=== PATIENT | male | born 1955 | race Caucasian/White ===

== ENCOUNTER 2024-05-17 09:13 | Outpatient (AMB) | payer OTHER, SELFPAY ==
--- NOTE | 2024-05-17 09:16 | MHC.OFFVIS ---
Vital Signs 05/17/24 09:20 Height 6 ft 2 in Weight 219 lb BMI 28.1 BP 144/70 H Blood Pressure Location Rt brachial Position Sitting Pulse 82 Pulse Source Pulse Oximeter Pulse Oximetry (%) 97 Oxygen Delivery Method Room Air Intake Visit Reasons: ENP: Tremors Intake Note: Patient presents for tremors. Allergies No Known Allergies Allergy (Verified 05/17/24 09:21) Medication List - Last Reconciled 05/17/24 by Katerina Johnston MD aspirin (Adult Low Dose Aspirin) 81 mg PO DAILY atorvastatin 80 mg PO BEDTIME betamethasone valerate 0.1% 1 appl topical BID PRN carbidopa-levodopa 25-100 mg tabs PO cetirizine 10 mg PO DAILY cetirizine (All Day Allergy (cetirizine)) 10 mg PO DAILY diclofenac sodium 1% (Aleve (diclofenac)) 4 grams topical QID glipizide 15 mg (3 x 5 mg) PO DAILY hydroxyzine HCl 10 mg PO TID PRN lisinopril 20 mg PO DAILY metformin 1,000 mg PO BID metoprolol succinate ER 25 mg PO DAILY omeprazole 20 mg PO DAILY tamsulosin 0.4 mg PO DAILY trazodone 50 mg PO DAILY HPI Comments Details: 68y/o male comes for evaluation of tremors. He started noticing right hand tremors about 1 year ago.It was intremittent initially but it is more persistent and now he has pain in his right elbow, right neck shoulder No tremors in his LE or the left UE. The tremors are mostly at rest. No change in speech.His handwriting is worse. No drooling.He can still use utensils but slower. No issues with personal hygiene. Gait- normal Memory- normal SLeep-has trouble staying asleep, has daytime fatigue, snores. bowel movements - has on and off diarrhea.No urinary issues No h/o head injury No exposure to chemical insecticides or pesticides. he was started on carbidopa/levodopa 25/100 tid but he did not notice any imporvement. [facility] Medical History (Updated 05/17/24 @ 09:50 by Katerina Johnston MD) Hypersomnia Snoring Sleep disorder Parkinson's disease without dyskinesia, without mention of fluctuations GERD (gastroesophageal reflux disease) DJD (degenerative joint disease) Insomnia HTN (hypertension) Hyperlipidemia LDL goal <100 Nephrolithiasis Hematuria Medial epicondylitis, left elbow Diabetes type 2 Diabetic polyneuropathy associated with type 2 diabetes mellitus Surgical History H/O lithotripsy H/O elbow surgery H/O colonoscopy Hx of cholecystectomy Family History Mother Diabetes Sister Diabetes Sister Diabetes Social History Alcohol intake: never Patient Tobacco Use Status: Never used Tobacco Physical Exam Vital Signs: Last Vital Signs Pulse 82 05/17/24 09:20 BP 144/70 H 05/17/24 09:20 Pulse Ox 97 05/17/24 09:20 Oxygen Delivery Method Room Air 05/17/24 09:20 BMI result Body Mass Index 28.1 Const General: cooperative, healthy appearing, comfortable and no acute distress Nutritional Appearance: average body habitus Orientation/consciousness: patient oriented x3 Eyes Pupils: Equal, round and reactive pupils present Neuro Other: Right UE high amplitude rest tremors COuld not shrug his right shoulder Cog wheel rigidity 2 + Right UE Fine finger movements decreased R>L Hand movements decreased R>L Foot taps decreased R>L Decreased blink and facial movement on the right Gait. mild stoop, decreased arm swing on the right with rest tremors. General: patient oriented x3, moves all extremities and no focal motor deficits Cranial nerves: Yes Facial sensation intact/muscles of mastication intact, Yes Equal, round and reactive pupils present, Yes Bilaterally intact EOM present, Yes Nystagmus not present, Yes Normal facial strength present, Yes Midline tongue present and Yes Symmetric palate elevation present Cognition (Neuro): normal cognition Motor exam (neuro): 5/5 motor strength present throughout Deep tendon reflexes (DTR's): Right triceps reflex intensity grade: 2+, Left triceps reflex intensity grade: 2+, Rt Biceps (C5, C6): 2+, Left biceps reflex intensity grade: 2+, Right brachioradialis reflex intensity grade: 2+, Left brachioradialis reflex intensity grade: 2+, Right patellar reflex intensity grade: 2+ and Left patellar reflex intensity grade: 2+ Coordination: [id number] test normal and [id number] test normal Psych Appearance: grossly normal Mental Status: mental status grossly normal Affect: normal affect Assessment & Plan Assessment & Plan (1) Parkinson's disease without dyskinesia, without mention of fluctuations: Comment: Tremors predominant- right side Code(s): G20.A1 - Parkinson's disease without dyskinesia, without mention of fluctuations Category: Medical Qualifiers: Fluctuating manifestations: without fluctuating manifestations Qualified Code(s): G20.A1 - Parkinson's disease without dyskinesia, without mention of fluctuations (2) Sleep disorder: Code(s): G47.9 - Sleep disorder, unspecified Category: Medical (3) Snoring: Code(s): R06.83 - Snoring Category: Medical (4) Hypersomnia: Code(s): G47.10 - Hypersomnia, unspecified Category: Medical Plan MRI brain Home sleep test to r/o sleep apnea Continue exercise Carbidopa/levodopa 25/100 tid I will trial him on trihexyphenidyl 2mg bid Orders: Orders RT home sleep study Today G47.10 - Hypersomnia, unspecified, G47.9 - Sleep disorder, unspecified, R06.83 - Snoring MR head/brain wo con Today G20.A1 - Parkinson's disease without dyskinesia, without mention of fluctuations Medications: New metoprolol succinate ER 25 mg PO DAILY 90 tabs 0RF atorvastatin 80 mg PO BEDTIME 90 tabs 0RF lisinopril 20 mg PO DAILY 90 tabs 0RF metformin 1,000 mg PO BID 180 tabs 0RF trihexyphenidyl give with food (meal/snack) 2 mg PO BID 60 tabs 3RF cetirizine (All Day Allergy (cetirizine)) 10 mg PO DAILY 30 caps 0RF glipizide take 2 tablets PO daily at breakfast then take 1 tablet PO with dinner 15 mg (3 x 5 mg) PO DAILY 270 tabs 0RF omeprazole 20 mg PO DAILY 90 caps 0RF aspirin (Adult Low Dose Aspirin) 81 mg PO DAILY 90 tabs 0RF tamsulosin 0.4 mg PO DAILY 90 caps 0RF trazodone 1-3 tablets PO at bedtime PRN for sleep 50 mg PO DAILY 90 tabs 0RF betamethasone valerate 0.1% 1 appl topical BID PRN 30 grams 0RF skin irritation hydroxyzine HCl 10 mg PO TID PRN 30 tabs 0RF itching Coding Level of Care Code New Pt Level 4 (16804) Complex EM visit Add On G2211 Diagnoses Parkinson's disease without dyskinesia or fluctuating manifestations G20.A1 Fluctuating manifestations: without fluctuating manifestations Sleep disorder G47.9 Snoring R06.83 Hypersomnia G47.10
[2024-05-17 09:20] VITALS: BP 144/70; PULSE 82; O2SAT 97; BMI 28.1
== END 2024-05-17 09:57 | disposition home or self-care (01) ==
PROVIDERS: PCP Physician Assistant Medical; Visit Provider Psychiatry & Neurology Neurology
DX: G20.A1 Parkinson's disease without dyskinesia, without mention of fluctuations (principal); G47.9 Sleep disorder, unspecified; R06.83 Snoring; G47.10 Hypersomnia, unspecified
CPT/HCPCS: 99204; G2211

== ENCOUNTER → 2024-05-17 09:13 | Outpatient (BNVA) | payer OTHER, SELFPAY | PROVIDERS: PCP Physician Assistant Medical; Visit Provider Psychiatry & Neurology Neurology | DX: G20.A1 Parkinson's disease without dyskinesia, without mention of fluctuations (principal); G47.9 Sleep disorder, unspecified; G47.10 Hypersomnia, unspecified; R06.83 Snoring | CPT/HCPCS: 99202 ==

== ENCOUNTER → 2024-06-08 10:02 | Outpatient (BNV) | payer OTHER, SELFPAY | PROVIDERS: PCP Physician Assistant Medical; Visit Provider Radiology Diagnostic Radiology | DX: G20.C Parkinsonism, unspecified (principal) | CPT/HCPCS: 70551 ==

== ENCOUNTER → 2024-06-29 10:48 | Outpatient (REF) | payer OTHER, SELFPAY ==
--- OUTSIDE RECORDS SUMMARY | 2024-06-29 13:25 | XMS_ITS | Encounter Summary ---
Author Organization [facility] Address [address] [place] [address] Care Team Providers Care Nuclear Reactor Engineer Name Role Phone Chuy Milian Primary Care Provider [phone] Reason for Referral * Imaging (Routine) - Pending Review Specialty Diagnoses / Procedures Referred By Harriet lombardo Referred To Contact Radiology Diagnoses Pancreatic lesion Procedures MR Abdomen wo and w Contrast Lewis Mei DO [address] [address] Phone: tel: fax: Radiology Department [address] [address] Phone: tel: fax: Referral ID Status Reason Start Date Expiration Date V isits Requested Visits Authorized [id number] Pending Review 06/14/2024 06/14/2025 1 1 Reason for Visit * Reason Comments Imaging Follow-up Encounter Details Date Type Department Care Team (Late st Contact Info) Description 06/14/2024 8:45 AM EST Office Visit General Surgery - [facility] [address] [phone] Lewis Mei DO [address] [address] Pancreatic lesion (Primary Dx); Right inguinal hernia Social History Tobacco Use Types Packs/Day Years Used Date Smoking Tobacco: Never Assessed Sex and Gender Information Value Date Recorded Sex Assigned at Not on file Legal Sex Male 2:33 PM EST Gender Identity Not on file Sexual Orientation Not on file documented as of this encounter Last Filed Vital Signs Vital Sign Reading Time Taken Comments Blood Pressure 144/77 06/14/2024 8:40 AM EST Pulse 71 06/14/2024 8:40 AM EST Temperature - - Respiratory Rate - - Oxygen Saturation - - Inhaled Oxygen Concentration - - Weight 98.9 kg (218 lb) 06/14/2024 8:40 AM EST Height 188 cm (6' 2 ) 06/14/2024 8:40 AM EST Body Mass Index 27.99 06/14/2024 8:40 AM EST documented in this encounter Progress Notes * Lewis Mei DO - 06/14/2024 8:45 AM EST Reason for visit: Follow-up - CT follow-up right inguinal hernia HPI: This is a pleasant 68 y.o. patient who was previously evaluated in my office for question of right inguinal hernia. He returns today to go over CT results. These showed. A Right fat-containing inguinal hernia with a hernia sac measuring 3.9 x 3.1 cm and defect measuring 1.3 cm. 2. No left-sided inguinal hernia is present. Anterior to the left external iliac vein is a nonspecific cystic lesion measuring 2.8 cm. This could be related to postoperative changes versus mesentericcyst. If further evaluation is needed, consider left sided ultrasound pelvis/groin. 3. 3 mm nonobstructing right renal calculus 4. 1.7 cm cystic lesion of the pancreatic head which statistically likely represent IPMN. Consider MRI abdomen with IV contrast/MRCP if further evaluation is necessary. ? He still wishes to move forward with surgery There have been no interval changes in past medical/surgical history, medications, social history, or family medical history. Please refer to EMR or my prior note for additional details. ROS GENERAL: No significant weight loss or fever RESPIRATORY: No cough or shortness of breath CARDIOVASCULAR: No chest pain GI: No abdominal discomfort, see HPI SKIN: No rash, jaundice ACTIVE MEDICATIONS: Medication list was reviewed/updated with the patient. No outpatient medications have been marked as taking for the 06/14/24 encounter (Office Visit) with Lewis Mei DO. ALLERGIES: @ALL@ PHYSICAL EXAM: Visit Vitals BP (!) 144/77 Pulse 71 Ht 1.88 m (74 ) Wt 98.9 kg (218 lb) BMI 27.99 kg/m?? BSA 2.25 m?? APPEARANCE: Alert and in no acute distress EYES: conjunctiva and sclera normal. HEART: RRR LUNG: non-labored respirations, patient is comfortable on room air without adventitious sounds ABDOMEN: benign , prior right subcostal incision from open gallbladder. Right inguinal hernia present EXTREMITIES: Extremities warm and well perfused without edema NEURO: Awake, alert and oriented, moves all extremities SKIN: Skin color, texture normal. LABS: No results found for: WBC , HGB , HCT , MCV No results found for: NA , K , CO2 , CL , BUN , GLU , ALB , ALKPHOS , TP IMAGING: Narrative & Impression CT ABDOMEN AND PELVIS WITHOUT INTRAVENOUS CONTRAST HISTORY: question right inguinal hernia. TECHNIQUE: Multiple contiguous axial images of the abdomen and pelvis were obtained without intravenous contrast. Images were reformatted to coronal and sagittal planes. Radiation dose is 16.28mGy COMPARISON: None FINDINGS: Lungs: The lung bases are clear. Mediastinum: The cardiac apex is normal in size, no pericardial effusion. Upper GI: Fatty infiltration of the liver. The spleen is grossly within normal limits. Patient is status postcholecystectomy. The pancreas is fatty replaced. There is a cystic lesion at the pancreatic head measuring 1.7 x 1.1 cm. Small hiatal hernia. : The adrenal glands are normal bilaterally. The kidneys are without hydronephrosis. 3 mm right upperpole nonobstructing calculus. Left upper pole 1.4 cm cyst. Left lower pole parapelvic cyst measuring 2.6 cm. The ureters take a nonobstructed course to a partially decompressed urinary bladder. Nonspecific cystic lesion within the left lower pelvis measuring 2.2 x 2.8 cm situated anterior to the left external iliac vein. Lower GI: The bowel is without obstruction or inflammation and there is no free fluid or free air within the peritoneal cavity. The terminal ileum and appendix are unremarkable. Multiple subcentimeter lymph nodes within the abdomen and pelvis. Vascular: Moderate atherosclerotic calcification of the abdominal aorta. MSK: There is a fat-containing right inguinal hernia with a hernia sac measuring 3.9 x 3.1 cm and a defect measuring 1.3 cm. No left-sided inguinal hernia is present. Mild degenerative changes of the osseous structures. IMPRESSION: 1. Right fat-containing inguinal hernia with a hernia sac measuring 3.9 x 3.1 cm and defect measuring 1.3 cm. 2. No left-sided inguinal hernia is present. Anterior to the left external iliac vein is a nonspecific cystic lesion measuring 2.8 cm. This could be related to postoperative changes versus mesentericcyst. If further evaluation is needed, consider left sided ultrasound pelvis/groin. 3. 3 mm nonobstructing right renal calculus 4. 1.7 cm cystic lesion of the pancreatic head which statistically likely represent IPMN. Consider MRI abdomen with IV contrast/MRCP if further evaluation is necessary. -------- FINAL REPORT -------- Dictated By: Chao Guajardo Dictated Date: 05/18/2024 09:52 ET Assigned Physician: Chao Guajardo Reviewed and Electronically Signed By: Chao Guajardo Signed Date: 05/18/2024 10:23 ET Workstation ID: [id number] Transcribed By: Self Edit Transcribed Date: 05/18/2024 09:52 ET ................................................................................ ............................................................. ASSESSMENT 1. Pancreatic lesion 2. Right inguinal hernia PLAN: 1. Patient has pancreatic lesion likely IPMN, will order MRI prior to operative intervention Right inguinal hernia- We will plan to move forward with Robotic assisted right inguinal hernia repair with Mesh. I explained the procedure in detail including the risks of the procedure which include bleeding, infection, damage to surrounding structures and need for further procedures. He understood the risks and wished to move forward with surgery. Decision made to move forward with surgery It was a pleasure seeing @PATRICE@ Cameron Kaur at the Surgery [facility] today. The patient has been instructed to call with any additional questions or concerns. @ESIG@ cc: documented in this encounter Plan of Treatment Upcoming Encounters Date Type Department Care Team (Late st Contact Info) Description 07/04/2024 8:30 AM EST Office Visit Adult Medicine [facility] [address] [place] [address] Kamala Puentes PA [address] [place] [address] 08/04/2024 10:00 AM EDT Pre-Admission Testing [facility] Pre-Admission Testing [address] [place] [phone] 08/12/2024 9:30 AM EDT Hospital Encounter [facility] Main OR [address] [place] [phone] Lewis Mei DO [address] [address] 08/12/2024 9:30 AM EDT - 08/12/2024 11:30 AM EDT Surgery [facility] Main OR [address] [place] [phone] Lewis Mei DO [address] [address] DAVINCI REPAIR RIGHT INGUINAL HERNIA W/MESH [02791 (CPT??)] 08/24/2024 10:00 AM EDT Office Visit General Surgery - [place] [address] [phone] Lewis Mei DO [address] [address] Pending Results Name Type Priority Associated Diagnoses Date /Time MR Abdomen wo and w Contrast Imaging Routine Pancreatic lesion 06/29/2024 10:16 AM EST Scheduled Orders Name Type Priority Associated Diagnoses Orde r Schedule ECG 12 lead ECG Routine Right inguinal hernia 1 Occurrences starting 06/14/2024 until 06/14/2025 MR Abdomen wo and w Contrast Imaging Routine Pancreatic lesion Expected: 06/14/2024, Expires: 06/14/2025 Scheduled Procedures Name Priority Associated Diagnoses Date/Ti nh REPAIR HERNIA INGUINAL ROBOT Right inguinal hernia 08/12/2024 9:30 AM EDT documented as of this encounter Visit Diagnoses Diagnosis Pancreatic lesion- Primary Right inguinal hernia Inguinal hernia without mention of obstruction or gangrene, unilateral or unspecified, (not specified as recurrent) Right inguinal hernia- Primary Inguinal hernia without mention of obstruction or gangrene, unilateral or unspecified, (not specified as recurrent) Right inguinal hernia Inguinal hernia without mention of obstruction or gangrene, unilateral or unspecified, (not specified as recurrent) documented in this encounter Orders Case Request Count Last Ordered Date First Orde red Date CASE REQUEST OPERATING ROOM 1 06/14/2024 documented in this encounter Care Teams Nuclear Reactor Engineer Relationship Specialty Start Date End Date Chuy Milian PA [address] [place] [address] PCP - General Internal Medicine 05/09/24 documented as of this encounter
--- OUTSIDE RECORDS SUMMARY | 2024-06-29 13:25 | XMS_ITS | Clinical Summary ---
Author Organization [facility] Address [address] [place] [address] Phone Care Team Providers Care B2B Sales Professional Name Role Phone Chuy Milian Primary Care Provider [phone] [phone] Allergies No known active allergies Medications aspirin 81 mg EC tablet Take 1 tablet (81 mg total) by mouth 1 (one) time each day. 3 Active atorvastatin (LIPITOR) 80 mg tablet Take 1 tablet (80 mg total) by mouth. 3 Active cetirizine (ZyrTEC) 10 mg tablet Take 1 tablet (10 mg total) by mouth. 4 Active diclofenac (VOLTAREN) 1 % topical gel Apply 4 g topically. 4 Active glipiZIDE (GLUCOTROL) 5 mg tablet TAKE 2 TABLETS BY MOUTH DAILY WITH BREAKFAST THEN TAKE 1 TABLET BY MOUTH WITH DINNER 4 Active OneTouch Ultra Test test strip Apply 1 each topically. 4 Active hydrOXYzine HCL (ATARAX) 10 mg tablet Take 1 tablet (10 mg total) by mouth. 3 Active lisinopriL (PRINIVIL,ZESTR IL) 20 mg tablet Take 1 tablet (20 mg total) by mouth 1 (one) time each day. 3 Active metFORMIN (GLUCOPHAGE) 1,000 mg tablet Take 1 tablet (1,000 mg total) by mouth. 3 Active metoprolol succinate (TOPROL-XL) 25 mg 24 hr tablet Take 1 tablet (25 mg total) by mouth 1 (one) time each day. 3 Active omeprazole (PriLOSEC) [address] capsule Take 1 capsule (20 mg total) by mouth 1 (one) time each day. 3 Active tamsulosin (FLOMAX) 0.4 mg 24 hr capsule Take 1 capsule (0.4 mg total) by mouth. 3 Active traZODone (DESYREL) 50 mg tablet TAKE 1 TO 3 TABLETS BY MOUTH AT BEDTIME NEEDED FOR SLEEP 3 Active lancets 33 gauge misc 1 Lancet by Not Applicable route. 4 Active OneTouch Ultra2 Meter misc USE TO TEST BLOOD SUGAR TWICE DAILY 1 each 5 Active primidone (MYSOLINE) 50 mg tablet TAKE 1/2 TABLET BY MOUTH AT BEDTIME 45 tablet 1 5 Active Active Problems Problem Noted Date Diagnosed Date Right inguinal hernia 06/14/2024 Diabetic polyneuropathy asso ciated with type 2 diabetes mellitus 09/19/2020 DM type 2, controlled, with complication 015 Medial epicondylitis of left elbow 11/19/2012 Nephrolithiasis 08/16/2012 Hematuria 08/16/2012 HTN (hypertension) 05/14/2012 Hyperlipidemia with target LDL less than 100 03/2013 Overview (06/29/2023): IMO update GERD (gastroesophageal reflux disease) 3 Insomnia 05/14/2012 Overview (06/29/2023): Takes rocioiftikhar DJD (degenerative joint disease) 05/14/2012 Resolved Problems Problem Noted Date Diagnosed Date Resolved Date Parkinsonism 11/02/2023 02/29/2024 Encounters Date Type Department Care Team Description 06/29/2024 8:36 AM EST Hospital Encounter Radiology Department - [address] [address] Pancreatic lesion 06/24/2024 Telephone General Surgery - [address] [place] [address] Lewis Mei, prior authorization ( Dr. Mei) 06/14/2024 8:45 AM EST Office Visit General Surgery - [place] 175 [facility] [address] [place] [phone] Lewis Mei DO Pancreatic lesion (Primary Dx); Right inguinal hernia 05/18/2024 8:49 AM EST - 05/18/2024 11:59 PM EST Hospital Encounter CT Scan - [address] [address] Right inguinal hernia Discharge Disposition: Home or Self Care 05/09/2024 3:00 PM EST Consult General Surgery - [place] [address] [phone] Lewis Mei, Right inguinal hernia from Last 3 Months Immunizations Name Administration Dates Next Due Influenza trivalent, 0.5mL ( Fluzone High-dose) 65yo and older 02/03/2022,01/22/2021,02/06/2020 Influenza trivalent, with pr eservative (Fluzone; Afluria) 6mo and older 02/09/2019,01/06/2017,03/03/2012 Pneumococcal conjugate 13 va lent (Prevnar 13, PCV13) 2mo and older 09/25/2021 Pneumococcal polysaccharide 23 valent (Pneumovax 23) 2yo and older 09/19/2020,03/03/2012 Td Tetanus diptheria (Tdvax) 7yo and older 11/25,10/15/2012 Tdap Tetanus diptheria acell ular pertussis (Boostrix; Adacel) 7yo and older 08/16/2012 Zoster Live 04/16/2016 Zoster recombinant (Shingrix ) 19yo and older 03/26/2021,01/25/2021 Medical History Medical History Date Comments Parkinsonism (CMS/HCC) 11/02/2023 Social History Tobacco Use Types Packs/Day Years Used Date Smoking Tobacco: Never Assessed Sex and Gender Information Value Date Recorded Sex Assigned at Not on file Legal Sex Male 2:33 PM EST Gender Identity Not on file Sexual Orientation Not on file Obstetrics History Last Filed Vital Signs Vital Sign Reading Time Taken Comments Blood Pressure 144/77 06/14/2024 8:40 AM EST Pulse 71 06/14/2024 8:40 AM EST Temperature - - Respiratory Rate - - Oxygen Saturation - - Inhaled Oxygen Concentration - - Weight 99.8 kg (220 lb) 06/29/2024 9:13 AM EST Height 188 cm (6' 2 ) 06/14/2024 8:40 AM EST Body Mass Index 28.25 06/14/2024 8:40 AM EST Plan of Treatment Upcoming Encounters Date Type Department Care Team (Late st Contact Info) Description 07/04/2024 8:30 AM EST Office Visit Adult Medicine [facility] [address] [place], [place] [phone] Kamala Puentes PA [address], [place] 08/04/2024 10:00 AM EDT Pre-Admission Testing [facility] Pre-Admission Testing [address] [place] [address] 08/12/2024 9:30 AM EDT Hospital Encounter [facility] Main OR [address] [place] [address] Lewis Mei, DO [address] [address] 08/12/2024 9:30 AM EDT - 08/12/2024 11:30 AM EDT Surgery [facility] Main OR [address] [place] [address] Lewis Mei, DO [address] [address] DAVINCI REPAIR RIGHT INGUINAL HERNIA W/MESH [22178 (CPT??)] 08/24/2024 10:00 AM EDT Office Visit General Surgery [facility] [address] [phone] Lewis Mei, DO [address] [address] Scheduled Procedures Name Priority Associated Diagnoses Date/Ti me REPAIR HERNIA INGUINAL ROBOT Right inguinal hernia 08/12/2024 9:30 AM EDT Health Maintenance Due Date Last Done Comments RSV Immunization Patients 60+ Years Old (1 - Risk 60-74 years 1-dose series) 2014 Medicare Annual Wellness Visit 04/12/2022 Social Influencers of Health Screening 04/12/2022 Falls Risk Assessment 02/03/2023 02/03/2022 Diabetes: Annual Retina Eye Exam 11/18/2023 11/17/2022 Depression Screening 11/26/2023 11/25/2022 Diabetes: Annual Foot Exam 11/26/2023 11/25/2022 Diabetes: Annual Urine Albumin-Creatinine Ratio (uACR) 11/27/2023 11/26/2022 COVID-19 Vaccine ( season) 2024 04/16/2021, 09/06/2020, 08/09/2020 Diabetes: Blood Sugar Control Test (HGBA1C) 08/19/2024 02/19/2024, 11/02/2023, 11/26/2022 Diabetes: Annual GFR (Glomerular Filtration Rate) 02/18/2025 02/19/2024, 11/02/2023 Hypertension/CHF/CAD Annual BMP Blood Test 02/18/2025 02/19/2024, 11/02/2023 Cholesterol Screening (Lipid Panel) 02/18/2029 02/19/2024, 11/02/2023, 11/02/2023, Additional history exists Colorectal Cancer Screening: Colonoscopy 12/24/2030 12/24/2020 DTaP,Tdap,and Td Vaccines (4 - Td or Tdap) 11/25/2032 11/25/2022, 10/15/2012, 08/16/2012 Hepatitis C Screening Completed 07/16/2015 Abdominal Aortic Aneurysm (AAA) Screen Completed 2020 Zoster Vaccines Completed 03/26/2021, 01/03, 04/16/2016 Pneumococcal Vaccine: 50+ Years Completed 09/25/2021, 09/19/2020, 03/03/2012 Influenza Vaccine Completed 02/19/2024, , 01/22/2021, Additional history exists HIB Vaccines Aged Out No longer eligi ble based on patient's age to complete this topic HPV Vaccines Aged Out No longer eligi ble based on patient's age to complete this topic Hepatitis A Vaccines Aged Out No long er eligible based on patient's age to complete this topic Hepatitis B Vaccines Aged Out No long er eligible based on patient's age to complete this topic IPV Vaccines Aged Out No longer eligi ble based on patient's age to complete this topic MMR Vaccines Aged Out No longer eligi ble based on patient's age to complete this topic Meningococcal ACWY Vaccine Aged Out N o longer eligible based on patient's age to complete this topic Meningococcal B Vacine Aged Out No lo nger eligible based on patient's age to complete this topic RSV Immunization Patients Under 20 months Aged Out No longer eligible based on patient's age to complete this topic Varicella Vaccines Aged Out No longer eligible based on patient's age to complete this topic Procedures Procedure Name Priority Date/Time Associated Diagnosis Comments CT ABDOMEN PELVIS WO CONTRAST Routine 05/18/2024 9:03 AM EST Right inguinal hernia URINE ALBUMIN CREATININE RATIO Routine 11/26/2022 HEMOGLOBIN A1C Routine 11/26/2022 LIPID PANEL Routine 11/26/2022 COLONOSCOPY Routine 12/24/2020 ABDOMINAL AORTIC ANEURYSM SCRREN Routine 2020 HEPATITIS C SCREENING Routine 07/16/2015 from Last 3 Months or Most Recently Relevant to Health Maintenance Results * CT Abdomen Pelvis wo Contrast (05/18/2024 9:03 AM EST) Anatomical Region Laterality Modality Body Computed Tomogra phy 05/18/2024 9:52 AM EST Impressions 05/18/2024 10:23 AM EST 1. ??Right fat-containing inguinal hernia with a hernia sac measuring 3.9 x 3.1 cm and defect measuring 1.3 cm. 2. No left-sided inguinal hernia is present. ??Anterior to the left external iliac vein is a nonspecific cystic lesion measuring 2.8 cm. ??This could be related to postoperative changes versus mesenteric cyst. ??If further evaluation is needed, consider left sided ultrasound pelvis/groin. 3. 3 mm nonobstructing right renal calculus 4. 1.7 cm cystic lesion of the pancreatic head which statistically likely represent IPMN. ??Consider MRI abdomen with IV contrast/MRCP if further evaluation is necessary. -------- FINAL REPORT -------- Dictated By: Chao Guajardo Dictated Date: 05/18/2024 09:52 ET Assigned Physician: Chao Guajardo Reviewed and Electronically Signed By: Chao Guajardo Signed Date: 05/18/2024 10:23 ET Workstation ID: [id number] Transcribed By: Self Edit Transcribed Date: 05/18/2024 09:52 ET Narrative 05/18/2024 10:[address] ABDOMEN AND PELVIS WITHOUT INTRAVENOUS CONTRAST HISTORY: question right inguinal hernia. TECHNIQUE: ??Multiple contiguous axial images of the abdomen and pelvis were obtained without intravenous contrast. Images were reformatted to coronal and sagittal planes. Radiation dose is 16.28mGy COMPARISON: None FINDINGS: Lungs: The lung bases are clear. ?? Mediastinum: The cardiac apex is normal in size, no pericardial effusion. Upper GI: Fatty infiltration of the liver. ??The spleen is grossly within normal limits. ??Patient is status post cholecystectomy. ??The pancreas is fatty replaced. ??There is a cystic lesion at the pancreatic head measuring 1.7 x 1.1 cm. ??Small hiatal hernia. : The adrenal glands are normal bilaterally. ??The kidneys are without hydronephrosis. ??3 mm right upper pole nonobstructing calculus. ??Left upper pole 1.4 cm cyst. ??Left lower pole parapelvic cyst measuring 2.6 cm. ??The ureters take a nonobstructed course to a partially decompressed urinary bladder. ??Nonspecific cystic lesion within the left lower pelvis measuring 2.2 x 2.8 cm situated anterior to the left external iliac vein. Lower GI: The bowel is without obstruction or inflammation and there is no free fluid or free air within the peritoneal cavity. ??The terminal ileum and appendix are unremarkable. ??Multiple subcentimeter lymph nodes within the abdomen and pelvis. Vascular: Moderate atherosclerotic calcification of the abdominal aorta. MSK: There is a fat-containing right inguinal hernia with a hernia sac measuring 3.9 x 3.1 cm and a defect measuring 1.3 cm. ??No left-sided inguinal hernia is present. ??Mild degenerative changes of the osseous structures. Procedure Note Chao Guajardo MD - 05/18/2024 CT ABDOMEN AND PELVIS WITHOUT INTRAVENOUS CONTRAST HISTORY: question right inguinal hernia. TECHNIQUE: Multiple contiguous axial images of the abdomen and pelviswere obtained without intravenous contrast. Images were reformatted tocoronal and sagittal planes. Radiation dose is 16.28mGy COMPARISON: None FINDINGS: Lungs: The lung bases are clear. Mediastinum: The cardiac apex is normal in size, no pericardial effusion. Upper GI: Fatty infiltration of the liver. The spleen is grossly within normallimits. Patient is status post cholecystectomy. The pancreas is fattyreplaced. There is a cystic lesion at the pancreatic head measuring 1.7 x1.1 cm. Small hiatal hernia. : The adrenal glands are normal bilaterally. The kidneys are withouthydronephrosis. 3 mm right upper pole nonobstructing calculus. Leftupper pole 1.4 cm cyst. Left lower pole parapelvic cyst measuring 2.6 cm.The ureters take a nonobstructed course to a partially decompressedurinary bladder. Nonspecific cystic lesion within the left lower pelvismeasuring 2.2 x 2.8 cm situated anterior to the left external iliacvein. Lower GI: The bowel is without obstruction or inflammation and there is no freefluid or free air within the peritoneal cavity. The terminal ileum andappendix are unremarkable. Multiple subcentimeter lymph nodes within theabdomen and pelvis. Vascular: Moderate atherosclerotic calcification of the abdominal aorta. MSK: There is a fat-containing right inguinal hernia with a hernia sacmeasuring 3.9 x 3.1 cm and a defect measuring 1.3 cm. No left-sidedinguinal hernia is present. Mild degenerative changes of the osseousstructures. IMPRESSION: 1. Right fat-containing inguinal hernia with a hernia sac measuring 3.9 x3.1 cm and defect measuring 1.3 cm. 2. No left-sided inguinal hernia is present. Anterior to the leftexternal iliac vein is a nonspecific cystic lesion measuring 2.8 cm. Thiscould be related to postoperative changes versus mesenteric cyst. Iffurther evaluation is needed, consider left sided ultrasound pelvis/groin. 3. 3 mm nonobstructing right renal calculus 4. 1.7 cm cystic lesion of the pancreatic head which statistically likelyrepresent IPMN. Consider MRI abdomen with IV contrast/MRCP if furtherevaluation is necessary. -------- FINAL REPORT -------- Dictated By: Chao Guajardo Dictated Date: 05/18/2024 09:52 ET Assigned Physician: Chao Guajardo Reviewed and Electronically Signed By: Chao Guajardo Signed Date: 05/18/2024 10:23 ET Workstation ID: [id number] Transcribed By: Self Edit Transcribed Date: 05/18/2024 09:52 ET Result [facility] Lewis Mei DO IMG CT PROCEDURES Final Result * Urine Albumin Creatinine Ratio (11/26/2022) Pathologist [facility] Urine Albumin Creatinine Ratio 8.3 Result [facility] Provider HEALTH MAINTENANCE Final Result * Hemoglobin A1c (11/26/2022) [facility] Hemoglobin A1C 6.5 % Blood Venous blood specimen / Unknown Result [facility] Provider LAB BLOOD ORDERABLES Tayla l Result * Lipid panel (11/26/2022) Pathologist [facility] LDL/HDL Ratio 5 Triglycerides 256 mg/dL Cholesterol 202 mg/dL HDL 45 mg/dL LDL Cholesterol 106 mg/dL Blood Venous blood specimen / Unknown Result [facility] Provider LAB BLOOD ORDERABLES Tayla l Result * Colonoscopy (12/24/2020) Pathologist [facility] Colonoscopy Negative Anatomical Region Laterality Modality Other Result [facility] Provider HEALTH MAINTENANCE Final Result * Abdominal Aortic Aneurysm Screen (2020) Abdominal Aortic Aneurysm (AAA) Screening Negative Anatomical Region Laterality Modality Other Historical Provider HEALTH MAINTENANCE Final Result * Hepatitis C Screening (07/16/2015) Hepatitis C Screening Negative Historical Provider HEALTH MAINTENANCE Final Result from Last 3 Months or Most Recently Relevant to Health Maintenance [place] [address] [place] [address] MEDICARE Member Subscriber Plan / Payer (Ef fective 2020-Present) Name:Cameron Kaur Relation to Subscriber:Self Name:Cameron Kaur Payer ID:[id number] Group ID:[id number] Type:Not on file Address: [address] [place] [address] [facility] [employer] Care Teams B2B Sales Professional Relationship Specialty Start Date End Date Chuy Milian PA [address] [place] [address] PCP - General Internal Medicine 05/09/24
--- OUTSIDE RECORDS SUMMARY | 2024-06-29 13:25 | XMS_ITS | Encounter Summary ---
Author Organization [facility] Address [address] [place] [address] Care Team Providers Care Regional Transportation Manager Name Role Phone Chuy Milian Primary Care Provider [phone] Reason for Visit * Reason Onset Date Comments prior authorization 06/24/2024 Dr Alyssa Mei Encounter Details Date Type Department Care Team (Late Contact Info) Description 06/24/2024 Telephone General Surgery - [place] 175 [facility] [address] [place] [phone] Lewis Mei, DO 175 [facility] [address] [place] [id number] prior authorization ( Dr. Mei) Social History Tobacco Use Types Packs/Day Years Used Date Smoking Tobacco: Never Assessed Sex and Gender Information Value Date Recorded Sex Assigned at Not on file Legal Sex Male 2:33 PM EST Gender Identity Not on file Sexual Orientation Not on file documented as of this encounter Progress Notes * Ludwig Villa - 06/24/2024 11:21 [place] [id number] per [facility] documented in this encounter Plan of Treatment Upcoming Encounters Date Type Department Care Team (Late st Contact Info) Description 07/04/2024 8:30 AM EST Office Visit Adult Medicine [address] [phone] Kamala Puentes PA [address] [place], [place] 08/04/2024 10:00 AM EDT Pre-Admission Testing Pre-Admission Testing [address] [place] [phone] 08/12/2024 9:30 AM EDT Hospital Encounter Main OR [address] [place] [phone] Lewis Mei, DO [address] [address] 08/12/2024 9:30 AM EDT - 08/12/2024 11:[address] [facility] OR [address] [place] [phone] Lewis Mei, DO [address] [address] DAVINCI REPAIR RIGHT INGUINAL HERNIA W/MESH [[id number] (CPT??)] 08/24/2024 10:00 AM EDT Office Visit General Surgery - [place] [address] [phone] Lewis Mei, DO [address] [address] Scheduled Procedures Name Priority Associated Diagnoses Date/Ti nv REPAIR HERNIA INGUINAL ROBOT Right inguinal hernia 08/12/2024 9:30 AM EDT documented as of this encounter Visit Diagnoses Not on filedocumented in this encounter Care Teams Regional Transportation Manager Relationship Specialty Start Date End Date Chuy Milian PA [address] [place] [address] PCP - General Internal Medicine 05/09/24 documented as of this encounter
--- OUTSIDE RECORDS SUMMARY | 2024-06-29 13:25 | XMS_ITS | Encounter Summary ---
Author Organization [facility] Address [address] [place] [address] Care Team Providers Care Fur Blowing Machine Operator Name Role Phone Chuy Milian Primary Care Provider [phone] Reason for Referral * Imaging (Routine) - Pending Review Specialty Diagnoses / Procedures Referred By Contac t Referred To Contact Radiology Diagnoses Pancreatic lesion Procedures MR Abdomen wo and w Contrast Lewis Mei DO [address] [address] Phone: tel: fax: Radiology Department [address] Phone: tel: fax: Referral ID Status Reason Start Date Expiration Date V isits Requested Visits Authorized [id number] Pending Review 06/14/2024 06/14/2025 1 1 Reason for Visit * Imaging (Routine) - Pending Review Specialty Diagnoses / Procedures Referred By Contac t Referred To Contact Radiology Diagnoses Pancreatic lesion Procedures MR Abdomen wo and w Contrast Lewis Mei DO [address] [address] Phone: tel: fax: Radiology Department [address] Phone: tel: fax: Referral ID Status Reason Start Date Expiration Date V isits Requested Visits Authorized [id number] Pending Review 06/14/2024 06/14/2025 1 1 Encounter Details Date Type Department Care Team (Latest Contact Info) Description 06/29/2024 8:36 AM EST Hospital Encounter Radiology Department [address] [phone] Pancreatic lesion Social History Tobacco Use Types Packs/Day Years Used Date Smoking Tobacco: Never Assessed Sex and Gender Information Value Date Recorded Sex Assigned at Not on file Legal Sex Male 2:33 PM EST Gender Identity Not on file Sexual Orientation Not on file documented as of this encounter Plan of Treatment Upcoming Encounters Date Type Department Care Team (Late st Contact Info) Description 07/04/2024 8:30 AM EST Office Visit Adult Medicine [address] [phone] Kamala Puentes PA [address] [place] [address] 08/04/2024 10:00 AM EDT Pre-Admission Testing [facility] Pre-Admission Testing [address] [place] [phone] 08/12/2024 9:30 AM EDT Hospital Encounter [facility] Main OR [address] [place] [address] Lewis Mei, DO [address] [address] 08/12/2024 9:30 AM EDT - 08/12/2024 11:30 AM EDT Surgery [facility] Main OR [address] [place] [phone] Lewis Mei, DO [address] [address] DAVINCI REPAIR RIGHT INGUINAL HERNIA W/MESH [[id number] (CPT??)] 08/24/2024 10:00 AM EDT Office Visit General Surgery [facility] [address] [phone] Lewis Mei, DO [address] [place] [address] Pending Results Name Type Priority Associated Diagnoses Date /Time MR Abdomen wo and w Contrast Imaging Routine Pancreatic lesion 06/29/2024 10:16 AM EST Scheduled Orders Name Type Priority Associated Diagnoses Orde r Schedule MR Abdomen wo and w Contrast Imaging Routine Pancreatic lesion Once for 1 Occurrences starting 06/29/2024 until 06/29/2024 Scheduled Procedures Name Priority Associated Diagnoses Date/Ti me REPAIR HERNIA INGUINAL ROBOT Right inguinal hernia 08/12/2024 9:30 AM EDT documented as of this encounter Visit Diagnoses Diagnosis Right inguinal hernia- Primary Inguinal hernia without mention of obstruction or gangrene, unilateral or unspecified, (not specified as recurrent) Pancreatic lesion Right inguinal hernia Inguinal hernia without mention of obstruction or gangrene, unilateral or unspecified, (not specified as recurrent) documented in this encounter Administered Medications Inactive Administered Medications - up to 3 most recent administrations Medication Order MAR Action Action Date Dose Rate Site gadoterate meglumine (CLARISCAN, DOTAREM) injection 20 mL 20 mL, intravenous, Once in imaging, Starting on Thu06/29/24 at 0947, For 1 dose Given 06/29/2024 9:51 AM EST 20 mL documented in this encounter Orders Medications Ordered That Bro ht Not Have Been Administered Count Last Ordered Date First Ordered Date gadoterate meglumine (NADIA CAN, DOTAREM) injection 20 mL 1 06/29/2024 documented in this encounter Care Teams Fur Blowing Machine Operator Relationship Specialty Start Date End Date Chuy Milian PA [address] [place] [address] PCP - General Internal Medicine 05/09/24 documented as of this encounter
== END ==
LOC: HO.SL 10:48
PROVIDERS: PCP Physician Assistant Medical; Visit Provider Psychiatry & Neurology Neurology
DX: R06.83 Snoring (principal); G47.9 Sleep disorder, unspecified; G47.10 Hypersomnia, unspecified
CPT/HCPCS: 95806

== ENCOUNTER → 2024-06-29 11:03 | Outpatient (BNV) | payer OTHER, SELFPAY | PROVIDERS: PCP Physician Assistant Medical; Visit Provider Psychiatry & Neurology Neurology | DX: G47.33 Obstructive sleep apnea (adult) (pediatric) (principal) | CPT/HCPCS: 95806 ==

== ENCOUNTER 2024-10-05 13:42 | Outpatient (AMB) | payer OTHER, SELFPAY ==
[2024-10-05 13:45] VITALS: BP 122/60; PULSE 70; BMI 26.6
--- NOTE | 2024-10-05 13:45 | A.OFFVIS_ITS ---
Vital Signs 10/05/24 13:45 Height 6 ft 2 in Weight 207 lb 8 oz BMI 26.6 BP 122/60 Blood Pressure Location Lt brachial Position Sitting Pulse 70 Pulse Source Pulse Oximeter Intake Visit Reasons: 4mon follow-up Intake Note: Patient needs a refill on Carbidopa/ Levodopa 25-100mg. 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 [employer] Language: Peripatologist Name: Margot [id number] Accompanied by: Self / Same As Patient Allergies No Known Allergies Allergy (Verified 10/05/24 13:49) Medication List - Last Reconciled 10/05/24 by Katerina Johnston MD amantadine HCl 100 mg PO BID aspirin (Adult Low Dose Aspirin) 81 mg PO DAILY atorvastatin 80 mg PO BEDTIME betamethasone valerate 0.1% 1 appl topical BID PRN carbidopa-levodopa 25-100 mg tabs PO cetirizine 10 mg PO DAILY cetirizine (All Day Allergy (cetirizine)) 10 mg PO DAILY diclofenac sodium 1% (Aleve (diclofenac)) 4 grams topical QID glipizide 15 mg (3 x 5 mg) PO DAILY hydroxyzine HCl 10 mg PO TID PRN lisinopril 20 mg PO DAILY metformin 1,000 mg PO BID metoprolol succinate ER 25 mg PO DAILY omeprazole 20 mg PO DAILY tamsulosin 0.4 mg PO DAILY trazodone 50 mg PO DAILY trihexyphenidyl 2 mg PO BID Do you need a note to return to daycare/school/sports/work: No HPI Comments Details: 69y/o male comes for follow up of parkinsons disease and Obstructive sleep apnea His HST was c/w mild sleep apnea with increased severity in supine sleep, He tried CPAP - multiple masks and could not tolerate. His tremor sare better with trihexyphenidyl . The tremors are mostly at rest. No change in speech.His handwriting is worse. No drooling.He can still use utensils but slower. No issues with personal hygiene. Gait- normal Memory- normal SLeep-has trouble staying asleep, has daytime fatigue, snores. bowel movements - has on and off diarrhea.No urinary issues No h/o head injury No exposure to chemical insecticides or pesticides. [facility] Medical History (Updated 10/05/24 @ 14:32 by Katerina Johntson MD) Obstructive sleep apnea hypopnea, moderate Hypersomnia Snoring Sleep disorder Parkinson's disease without dyskinesia, without mention of fluctuations GERD (gastroesophageal reflux disease) DJD (degenerative joint disease) Insomnia HTN (hypertension) Hyperlipidemia LDL goal <100 Nephrolithiasis Hematuria Medial epicondylitis, left elbow Diabetes type 2 Diabetic polyneuropathy associated with type 2 diabetes mellitus Surgical History H/O lithotripsy H/O elbow surgery H/O colonoscopy Hx of cholecystectomy Family History Mother Diabetes Sister Diabetes Sister Diabetes Social History Alcohol intake: never Patient Tobacco Use Status: Never used Tobacco Physical Exam Vital Signs: Last Vital Signs Pulse 70 10/05/24 13:45 BP 122/60 10/05/24 13:45 BMI result Body Mass Index 26.6 Const General: cooperative, healthy appearing, comfortable and no acute distress Nutritional Appearance: average body habitus Orientation/consciousness: patient oriented x3 Eyes Pupils: Equal, round and reactive pupils present Neuro Other: Right UE high amplitude rest tremors COuld not shrug his right shoulder Cog wheel rigidity 2 + Right UE Fine finger movements decreased R>L Hand movements decreased R>L Foot taps decreased R>L Decreased blink and facial movement on the right Gait. mild stoop, decreased arm swing on the right with rest tremors. General: patient oriented x3, moves all extremities and no focal motor deficits Cranial nerves: Yes Facial sensation intact/muscles of mastication intact, Yes Equal, round and reactive pupils present, Yes Bilaterally intact EOM present, Yes Nystagmus not present, Yes Normal facial strength present, Yes Midline tongue present and Yes Symmetric palate elevation present Cognition (Neuro): normal cognition Motor exam (neuro): 5/5 motor strength present throughout Coordination: [id number] test normal and [id number] test normal Assessment & Plan Assessment & Plan (1) Parkinson's disease without dyskinesia, without mention of fluctuations: Comment: Tremors predominant- right side Code(s): G20.A1 - Parkinson's disease without dyskinesia, without mention of fluctuations Category: Medical Qualifiers: Fluctuating manifestations: without fluctuating manifestations Qualified Code(s): G20.A1 - Parkinson's disease without dyskinesia, without mention of fluctuations (2) Obstructive sleep apnea hypopnea, moderate: Comment: Unable to tolerate CPAP, not a candidate for oral device . Code(s): G47.33 - Obstructive sleep apnea (adult) (pediatric) Category: Medical Plan Continue exercise Carbidopa/levodopa 25/100 tid trihexyphenidyl 2mg bid will consider INSPIRE for sleep apnea. Medications: Changed From carbidopa-levodopa 25-100 mg PO To carbidopa-levodopa 25-100 mg 1 tab PO TID 90 tabs 5RF Coding Level of Care Code Est Pt Level 4 (07605) Complex EM visit Add On G2211 Diagnoses Parkinson's disease without dyskinesia or fluctuating manifestations G20.A1 Fluctuating manifestations: without fluctuating manifestations Obstructive sleep apnea hypopnea, moderate G47.33
--- OUTSIDE RECORDS SUMMARY | 2024-10-05 13:55 | XMS_ITS | Clinical Summary ---
Author Organization 175 [facility] Address [address] [place] [address] Phone Care Team Providers Care Sales Project Coordinator Name Role Phone Chuy Milian Primary Care Provider [phone] Allergies No known active allergies Medications aspirin 81 mg EC tablet Take 1 tablet (81 mg total) by mouth 1 (one) time each day. 11/26/19 23 Active glipiZIDE (GLUCOTROL) 5 mg tablet TAKE 2 TABLETS BY MOUTH DAILY WITH BREAKFAST THEN TAKE 1 TABLET BY MOUTH WITH DINNER 05/20/19 24 Active OneTouch Ultra Test test strip Apply 1 each topically. 06/29/19 24 Active lisinopriL (PRINIVIL,ZEST RIL) 20 mg tablet Take 1 tablet (20 mg total) by mouth 1 (one) time each day. 11/26/19 Active metFORMIN (GLUCOPHAGE) 1,000 mg tablet Take 1 tablet (1,000 mg total) by mouth 2 (two) times a day with meals. 11/26/19 Active metoprolol succinate (TOPROL-XL) 25 mg 24 hr tablet Take 1 tablet (25 mg total) by mouth 1 (one) time each day. 01/29/20 23 Active omeprazole (PriLOSEC) [address] capsule Take 1 capsule (20 mg total) by mouth if needed. 03/20/20 23 Active tamsulosin (FLOMAX) 0.4 mg 24 hr capsule Take 1 capsule (0.4 mg total) by mouth at bedtime. 11/26/19 23 Active lancets 33 gauge misc 1 Lancet by Not Applicable route. 06/29/19 24 Active OneTouch Ultra2 Meter [facility] USE TO TEST BLOOD SUGAR TWICE DAILY 1 each 05/30/19 25 Active carbidopa-levo dopa (SINEMET) 25-100 mg per tablet Take 1 tablet by mouth 2 (two) times a day. 06/22/19 25 Active atorvastatin (LIPITOR) 80 mg tablet Take 1 tablet (80 mg total) by mouth 1 (one) time each day. 90 tablet 3 07/09/19 25 Active acetaminophen (TYLENOL) 500 mg tablet Take by mouth every 6 (six) hours if needed for mild pain. Active acetaminophen (TYLENOL) 500 mg tablet Take 2 tablets (1,000 mg total) by mouth every 6 (six) hours if needed for mild pain. 60 tablet 08/13/19 25 Active ibuprofen (ADVIL,MOTRIN) 600 mg tablet Take 1 tablet (600 mg total) by mouth 3 (three) times a day. 60 each 08/13/19 25 Active oxyCODONE (ROXICODONE) 5 mg immediate release tabletIndicati ons:Right inguinal hernia Take 1 tablet (5 mg total) by mouth every 6 (six) hours if needed for severe pain. Max Daily Amount: 20 mg 16 tablet 08/13/19 25 Active cetirizine (ZyrTEC) 10 mg tablet TAKE 1 TABLET BY MOUTH DAILY 30 tablet 09/28/19 25 Active cetirizine (ZyrTEC) 10 mg tablet TAKE 1 TABLET BY MOUTH DAILY 30 tablet 08/18/19 25 025 Discontinued Active Problems Problem Noted Date Diagnosed Date Diabetic polyneuropathy asso ciated with type 2 diabetes mellitus ([facility] V24, [facility] V28) 09/19/2020 DM type 2, controlled, with complication ([facility] V24, [facility] V28) 02/12/2015 Medial epicondylitis of left elbow 11/19/2012 Nephrolithiasis 08/16/2012 Hematuria 08/16/2012 HTN (hypertension) 05/14/2012 Hyperlipidemia with target LDL less than 100 03/2013 Overview (06/29/2023): IMO update GERD (gastroesophageal reflux disease) 3 Insomnia 05/14/2012 Overview (06/29/2023): Takes pierre BABB (degenerative joint disease) 05/14/2012 Resolved Problems Problem Noted Date Diagnosed Date Resolved Date Right inguinal hernia 06/14/20242024 Parkinsonism (CMS/HCC V24, CMS/HCC V28) 11/02/2023 02/29/2024 Encounters Date Type Department Care Team Description 08/24/2024 10:00 AM EDT Office Visit General Surgery [address] [phone] Lewis Mei, Right inguinal hernia (Primary Dx); S/P right inguinal hernia repair, follow-up exam 08/12/2024 9:51 AM EDT Anesthesia Event [facility] OR [address] [place] [phone] Chuy Saldana DO Mounsey, Sarah, CRNA 08/12/2024 9:30 AM EDT - 08/12/2024 11:30 AM EDT Surgery [facility] OR [address] [place] [phone] Lewis Mei DO DAVINCI REPAIR RIGHT INGUINAL HERNIA W/MESH [[id number] (CPT??)] 08/12/2024 8:02 AM EDT - 08/12/2024 2:04 PM EDT Hospital Encounter [facility] OR [address] [place] [phone] Lewis Mei, Right inguinal hernia (Primary Dx) Discharge Disposition: Home or Self Care 07/25/2024 Telephone [facility] Surgery [address] [phone] Lewis Mei DO Forms/questionnaire s 07/19/[address] [phone] Tonja Tomas [place] 07/06/2024 Telephone Adult [address] [phone] Aaron Mendes MD from Last 3 Months Immunizations Name Administration [...] recombinant (Shingrix ) 19yo and older 03/26/2021,01/25/2021 Surgical History Surgery Date Site/Laterality Comments CHOLECYSTECTOMY ELBOW SURGERY Left KNEE ARTHROSCOPY Left Medical History Medical History Date Comments Parkinsonism ([facility] V24, [facility] V28) 11/02/19 24 Hyperlipidemia Hypertension Diabetes mellitus ([facility] V24, [facility] V28) GERD (gastroesophageal reflux disease) DJD (degenerative joint disease) Nephrolithiasis Sleep apnea Depression Joint pain Social History Tobacco Use Types Packs/Day Years Used Date Smoking Tobacco: Former Cigarettes Passive Smoke Exposure: Never Smokeless Tobacco: Never Tobacco Cessation:Counseling Given: Not Answered Alcohol Use Standard Drinks/Week Comments Not Currently 0 (1 standard drink = 0.6 oz pur e alcohol) Housing Instability Answer Date Recorde d Are you worried that in the next 2 months you may not have stable housing? No 07/04/2024 Food Access & Nutrition Answer Date Rec orded Do you have access to a vari ety of food including fruits and vegetables? Yes 07/04/2024 Access to Healthcare Answer Date Record ed Within the last 3 months, eduardo w many times did you visit the emergency department for your medical care? 0 07/04/2024 Health Literacy Answer Date Recorded How often do you need to hav e someone help you when you read instructions, pamphlets, or other written material from your doctor or pharmacy? Never 07/04/2024 Caregiver: How often do you need to have someone help you when you read instructions, pamphlets, or other written material from your doctor or pharmacy? Not on file 07/04/2024 Financial Risk Answer Date Recorded How hard is it for you to pa y for the very basics like food, housing, medical care, and air conditioning / heating? Not very hard 07/04/2024 Transportation Answer Date Recorded Has the lack of transportati on kept you from meetings, work, or from getting things needed for daily living? No Has the lack of transportati on kept you from medical appointments or from getting medications? No 07/04/2024 Social Isolation Answer Date Recorded How often do you feel lonely or isolated from th ose around you? Never 07/04/2024 Food Risk Answer Date Recorded Within the past 12 months we worried whether our food would run out before we got money to buy more. Never true 07/04/2024 Within the past 12 months th e food we bought just didn't last and we didn't have money to get more. Never true 07/04/2024 Dependent Care Answer Date Recorded Do you need help finding or paying for care for your loved ones. For example, early childhood associate teacher or elderly care for an older adult? No 07/04/2024 Education Answer Date Recorded Do you think completing more education or training, like finishing a GED, going to college, or learning a trade, would be helpful for you? No 07/04/2024 Employment and Income Answer Date Recor ded During the last four weeks, have you been actively looking for work? No 07/04/2024 Living Situation Answer Date Recorded What is your living situation? 0 07/04/2024 Interpersonal Safety Answer Date Record ed Physical Abuse 08/12/2024 Verbal Abuse 08/12/2024 Sex and Gender Information Value Date Recorded Sex Assigned at Male 08/04/2024 9:54 AM EDT Legal Sex Male 2:33 PM EST Gender Identity Male 08/04/2024 9:54 AM EDT Sexual Orientation Straight 08/04/2024 9: 54 AM EDT Obstetrics History Last Filed Vital Signs Vital Sign Reading Time Taken Comments Blood Pressure 157/75 08/24/2024 9:57 AM EDT Pulse 76 08/24/2024 9:57 AM EDT Temperature 36 ??C (96.8 ??F) 08/12/2024 12:41 PM EDT Respiratory Rate 18 08/12/2024 12:41 PM EDT Oxygen Saturation 98% 08/12/2024 12:41 PM EDT Inhaled Oxygen Concentration - - Weight 95.3 kg (210 lb) 08/24/2024 9:57 AM EDT Height 188 cm (6' 2 ) 08/24/2024 9:57 AM EDT Body Mass Index 26.96 08/24/2024 9:57 AM EDT Plan of Treatment Upcoming Encounters Date Type Department Care Team (Late st Contact Info) Description 10/25/2024 9:15 AM EDT Office Visit General Surgery - [place] [facility] [address] [place] [phone] Lewis Mei, [address] [facility] [address] [place] [address] 11/03/2024 11:15 AM EDT Office Visit Adult Medicine [facility] [address] [place] [phone] Kamala Puentes PA [address] [place] [phone] Health Maintenance Due Date Last Done Comments RSV Immunization Adult Patients (1 - Risk 60-74 years 1-dose series) 2014 Medicare Annual Wellness Visit 04/12/2022 COVID-19 Vaccine ( season) 2024 04/16/2021, 09/06/2020, 08/09/2020 Diabetes: Blood Sugar Control Test (HGBA1C) 01/06/2025 07/06/2024, 02/19/2024, 11/02/2023, Additional history exists Diabetes: Annual Retina Eye Exam 01/21/2025 01/22/2024, 01/22/2024, 11/17/2022 Depression Screening 07/04/2025 07/04/2024, 11/26/19 23 Diabetes: Annual Foot Exam 07/04/2025 07/04/2024, Social Influencers of Health Screening 07/04/2025 07/04/2024 Diabetes: Annual Urine Albumin-Creatinine Ratio (uACR) 07/06/2025 07/06/2024, 11/26/2022 Diabetes: Annual GFR (Glomerular Filtration Rate) 07/06/2025 07/06/2024, 02/19/2024, 11/02/2023 Hypertension/CHF/CAD Annual BMP Blood Test 07/06/2025 07/06/2024, 02/19/2024, 11/02/2023 Falls Risk Assessment 08/12/2025 08/12/2024 , 07/04/2024, 02/03/2022 Cholesterol Screening (Lipid Panel) 07/06/2029 07/06/2024, 07/06/2024, 02/19/2024, Additional history exists Colorectal Cancer Screening: Colonoscopy [...] age to complete this topic Meningococcal B Vaccine Aged Out No l onger eligible based on patient's age to complete this topic RSV Immunization Patients Under 20 months Aged Out No longer eligible based on patient's age to complete this topic Varicella Vaccines Aged Out No longer eligible based on patient's age to complete this topic Medical Devices Implanted Type Area Tissue Technologist Device Identifier Shelf Expiration Date Model / Serial / Lot Mesh Surg 3d Right Xlg 6.7x4.8 - Sn/A - [id number] Implanted:Qty: 1 on 08/12/2024 by Lewis Mei DO at [facility] Surgical Mesh Sling Implants Right: Abdomen CR BARD - DAVOL DIV 12/29/2028 [id number] / N/A / [id number] Procedures Procedure Name Priority Date/Time Associated Diagnosis Comments TH AN ENDOTRACHEAL(NO CHARGE) Routine 08/12/2024 10:25 AM EDT ME LAP SURG REPR INITIAL INGUINAL HERNIA 08/12/2024 9:48 AM EDT Right inguinal hernia Special Needs Robotic Inguinal Hernia Repair With Mesh (Right)-- asking 90 Minutes POCT GLUCOSE BLOOD Routine 08/12/2024 8: 12 AM EDT ECG 12-LEAD Routine 08/04/2024 10:03 AM EDT Right inguinal hernia ECHO 08/04/2024 LDL CHOLESTEROL, DIRECT Routine 07/06/2024 9:54 AM EST DM type 2, controlled, with complication (CMS/HCC V24, CMS/HCC V28) HEMOGLOBIN A1C Routine 07/06/2024 9:54 AM EST DM type 2, controlled, with complication (CMS/HCC V24, CMS/HCC V28) COMPREHENSIVE METABOLIC PANEL Routine 07/06/2024 9:54 AM EST DM type 2, controlled, with complication (CMS/HCC V24, CMS/HCC V28) LIPID PANEL WITH REFLEX TO DIRECT LDL Routine 07/06/2024 9:54 AM EST DM type 2, controlled, with complication (CMS/HCC V24, CMS/HCC V28) MICROALBUMIN CREATININE URINE RATIO Routine 07/06/2024 9:54 AM EST DM type 2, controlled, with complication (CMS/HCC V24, CMS/HCC V28) EXTERNAL DIABETIC RETINA EYE EXAM 01/22/2024 HM COLONOSCOPY Routine 12/24/2020 ABDOMINAL AORTIC ANEURYSM SCRREN Routine 2020 HEPATITIS C SCREENING Routine 07/16/2015 from Last 3 Months or Most Recently Relevant to Health Maintenance Results * TH AN ENDOTRACHEAL(NO CHARGE) (08/12/2024 10:25 AM EDT) Diamond Kemp CRNA - 08/12/2024 10:25 AM EDT Diamond Huang CRNA ? 08/12/2024 10:26 AM General Information and Staff Patient location during procedure: OR Anesthesiologist: Chuy Saldana DO Resident/BRAZER ASSEMBLER: Diamond Huang CRNA Performed: resident/BRAZER ASSEMBLER/CAA Performed by: Diamond Huang CRNA Authorized by: Chuy Saldana DO ?? Intubation Urgency: elective Final Airway Details Successful airway: ETT Cuffed: yes Successful intubation technique: direct laryngoscopy Blade: Janett Blade size: #3 ETT size (mm): 7.5 Cormack-Lehane Classification: grade I - full view of glottis Placement verified by: chest auscultation and capnometry Measured from: lips ETT to lips (cm): 22 Number of attempts at approach: 1Final airway type: endotracheal airway Indications and Patient Condition Indications for airway management: anesthesia Spontaneous ventilation: present Sedation level: Yes Preoxygenated: yes Soft Tissue Damage: No Dentition Unchanged: Yes Patient position: neutral MILS maintained throughout Mask difficulty assessment: 1 - vent by mask us hCuy Saldana DO ANESTHESIA ORDERABLES Final Res ult * (ABNORMAL) POCT Glucose, blood (08/12/2024 8:12 AM EDT) Glucose POCT 170(H) 70 - 100 mg/dL 08/12/2024 8:12 AM EDT [facility] Blood Capillary blood specimen / Unknown 08/12/2024 8:12 AM EDT 08/12/2024 8:13 AM EDT Lewis Mei DO LAB POINT OF CARE TE ST DOCKED DEVICE UNSOLICITED RESULTS Final Result Performing Organization Address [facility] de Phone Number [facility]) [facility] [address] [place] [address], [place] [phone] * ECG 12 lead (08/04/2024 10:03 AM EDT) Ventricular Rate ECG 49 BPM GEMUSE Atrial Rate 49 BPM GEMUSE P-R Interval 202 ms GEMUSE QRS Duration 78 ms GEMUSE Q-T Interval 392 ms GEMUSE QTc 354 ms GEMUSE P Wave [place] 16 degrees GEMUSE R [place] 50 degrees GEMUSE T [place] 68 degrees GEMUSE ECG Interpretation Sinus bradycardia Otherwise normal ECG When compared with ECG of 23-DEC-2021 12:51, No significant change was found Confirmed by Aleksandar ANNA YUFENG ([id number]) on 08/04/2024 7:03:28 PM GEMUSE 08/04/2024 10:0 3 AM EDT 08/04/2024 7:03 PM EDT Lewis Mei DO ECG ORDERABLES Final Result Performing Organization Address [facility] de Phone Number GEMUSE * Echo (08/04/2024) Anatomical Region Laterality Modality Other Provider [facility] CV HISTORICAL CONV PROCE DURES Final Result * (ABNORMAL) Lipid panel with reflex to direct LDL (07/06/2024 9:54 AM EST) Cholesterol 238(H) 0 - 200 mg/dL LAB CHEMISTRY METHOD 07/06/2024 3:29 PM EST [facility] Triglycerides 555(H) 0 - 150 mg/dL LAB CHEMISTRY METHOD 07/06/2024 3:29 PM EST [facility] HDL 41 >=40 mg/dL LAB CHEMISTRY METHOD 07/06/2024 3:29 PM [facility] LDL Calculated LAB CHEMISTRY METHOD 07/06/2024 3:29 PM [facility] Comment: Unable to calculate when triglycerides >400 mg/dL. Triglyceride value is >= 500. ??Calculated LDL is not meaningful. ??Direct LDL has been added. VLDL Cholesterol Binh LAB CHEMISTRY METHOD 07/06/2024 3:29 PM [facility] Comment:Unable to calculate when triglycerides >400 mg/dL. Non HDL Chol. (LDL+VLDL) LAB CHEMISTRY METHOD 07/06/2024 3:29 PM [facility] Comment:Unable to calculate when triglycerides >400 mg/dL. Chol/HDL Ratio 5.8(H) 0.0 - 4.4 LAB CHEMISTRY METHOD 07/06/2024 3:29 PM [facility] Blood Venous blood specimen / Unknown Venipuncture / Unknown 07/06/2024 9:54 AM EST 07/06/2024 9:54 AM EST us Kamala Dhaval CARROLL LAB BLOOD ORDERABLES Final Resul t [facility] [address] [place] [address], * (ABNORMAL) Microalbumin creatinine urine ratio (07/06/2024 9:54 AM EST) Creatinine, Urine 149.0 mg/dL LAB CHEMISTRY METHOD 07/06/2024 8:52 PM [facility] Microalb, Ur 36.4(H) 0.0 - 29.0 mg/L LAB CHEMISTRY METHOD 07/06/2024 8:52 PM [facility] Microalb/Crea t Ratio 24 <30 mg/g creat LAB CHEMISTRY METHOD 07/06/2024 8:52 PM [facility] Urine Urine specimen obtained by clean catch procedure / Unknown Non-blood Collection / Unknown 07/06/2024 9:54 AM EST 07/06/2024 9:54 AM EST us Kamala Puentes PA LAB URINE ORDERABLES Final Resul t Performing Organization Address [facility]/ZIP Co de Phone Number [facility] [address] [place] [address], [place] [phone] * LDL cholesterol, direct (07/06/2024 9:54 AM EST) LDL Direct 99 <=100 mg/dL LAB CHEMISTRY METHOD 07/06/2024 3:40 PM EST [facility] Blood Venous blood specimen / Unknown Venipuncture / Unknown 07/06/2024 9:54 AM EST 07/06/2024 9:54 AM EST us Kamala Puentes PA LAB BLOOD ORDERABLES Final Resul t Performing Organization Address [facility] de Phone Number [facility] [address] [place] [address], [place] [phone] * (ABNORMAL) Hemoglobin A1c (07/06/2024 9:54 AM EST) Hemoglobin A1C 7.1(H) <6.5 % LAB CHEMISTRY METHOD 07/06/2024 2:12 PM EST [facility] Mean Bld Glu Estim. 157 mg/dL LAB CHEMISTRY METHOD 07/06/2024 2:12 PM EST [facility] Blood Venous blood specimen / Unknown Venipuncture / Unknown 07/06/2024 9:54 AM EST 07/06/2024 9:54 AM EST Flukle Puentes PA LAB BLOOD ORDERABLES Final Resul t Performing Organization Address [facility]/ZIP Co de Phone Number [facility] [address] [place], [place] [address] [phone] * (ABNORMAL) Comprehensive metabolic panel (07/06/2024 9:54 AM EST) Sodium 138 133 - 145 mmol/L LAB CHEMISTRY METHOD 07/06/2024 3:22 PM [facility] Potassium 4.5 3.5 - 5.5 mmol/L LAB CHEMISTRY METHOD 07/06/2024 3:22 PM [facility] Chloride 102 96 - 110 mmol/L LAB CHEMISTRY METHOD 07/06/2024 3:22 PM [facility] CO2 28 21 - 32 mmol/L LAB CHEMISTRY METHOD 07/06/2024 3:22 PM [facility] Anion Gap 8 3 - 11 LAB CHEMISTRY METHOD 07/06/2024 3:22 PM [facility] Glucose 153(H) 70 - 100 mg/dL LAB CHEMISTRY METHOD 07/06/2024 3:22 PM [facility] BUN 19 5 - 25 mg/dL LAB CHEMISTRY METHOD 07/06/2024 3:22 PM [facility] Creatinine 1.06 0.70 - 1.30 mg/dL LAB CHEMISTRY METHOD 07/06/2024 3:22 PM [facility] eGFR 75 >=60 mL/min/1. 73m2 LAB CHEMISTRY METHOD 07/06/2024 3:22 PM [facility] Comment:Calculation based on the??Chronic Kidney Disease Epidemiology Collaboration (CKD-EPI) equation refit??without adjustment for race. BUN/Creatinine Ratio 17.9 LAB CHEMISTRY METHOD 07/06/2024 3:22 PM [facility] Calcium 9.6 8.5 - 10.5 mg/dL LAB CHEMISTRY METHOD 07/06/2024 3:22 PM [facility] AST (SGOT) 22 10 - 42 unit/L LAB CHEMISTRY METHOD 07/06/2024 3:22 PM [facility] ALT (SGPT) 29 10 - 60 unit/L LAB CHEMISTRY METHOD 07/06/2024 3:22 PM EST [facility] Alkaline Phosphatase 88 42 - 121 unit/L LAB CHEMISTRY METHOD 07/06/2024 3:22 PM EST [facility] Total Protein 7.4 6.0 - 8.0 g/dL LAB CHEMISTRY METHOD 07/06/2024 3:22 PM EST [facility] Albumin 4.2 3.2 - 5.0 g/dL LAB CHEMISTRY METHOD 07/06/2024 3:22 PM EST [facility] Total Bilirubin 0.6 0.0 - 1.4 mg/dL LAB CHEMISTRY METHOD 07/06/2024 3:22 PM [facility] Blood Venous blood specimen / Unknown Venipuncture / Unknown 07/06/2024 9:54 AM EST 07/06/2024 9:54 AM EST Kamala CARROLL LAB BLOOD ORDERABLES Final Resul t [facility] [address] [place] [address], [place] [phone] * External Diabetic Retina Eye Exam Report (01/22/2024) Anatomical Region Laterality Modality Ultrasound Provider [place] [facility] IMG US PROCEDURES Final Result * Colonoscopy (12/24/2020) Colonoscopy Negative Anatomical Region Laterality Modality Other Historical Provider HEALTH MAINTENANCE Final Result * Abdominal Aortic Aneurysm Screen (2020) Abdominal Aortic Aneurysm (AAA) Screening Negative Anatomical Region Laterality Modality Other Historical Provider HEALTH MAINTENANCE Final Result * Hepatitis C Screening (07/16/2015) Hepatitis C Screening Negative Historical Provider HEALTH MAINTENANCE Final Result from Last 3 Months or Most Recently Relevant to Health Maintenance Insurance [facility] MEDICARE Member Subscriber Plan / Payer (Ef fective 2020-Present) Name:AMBROSE KAUR Relation to Subscriber:Self Name:Ambrose Kaur Payer ID:[id number] Group ID:[id number] Type:Not on file Address: [address] [facility] [place] [address] Advance Directives * Full Code - Default (Latest Code Status on File) Date Activated Date Inactivated Comments 08/12/2024 8:05 AM 08/12/2024 4:09 PM This is orde r is used when code status has not been discussed with the patient, or code status is otherwise unknown/unconfirmed To update the patient's code status, place a code status order. Do not modify or discontinue any currently active code status orders. Care Teams Sales Project Coordinator Relationship Specialty Start Date End Date Chuy Milian PA [address] [place] [id number] PCP - General Internal Medicine 05/09/24
== END 2024-10-05 14:22 | disposition home or self-care (01) ==
LOC: HO.HSMS 13:42
PROVIDERS: PCP Physician Assistant Medical; Visit Provider Psychiatry & Neurology Neurology
DX: G20.A1 Parkinson's disease without dyskinesia, without mention of fluctuations (principal); G47.33 Obstructive sleep apnea (adult) (pediatric)
CPT/HCPCS: 99214; G2211

== ENCOUNTER → 2024-10-05 13:42 | Outpatient (BNVA) | payer OTHER, SELFPAY | PROVIDERS: PCP Physician Assistant Medical; Visit Provider Psychiatry & Neurology Neurology | DX: G20.A1 Parkinson's disease without dyskinesia, without mention of fluctuations (principal); G47.33 Obstructive sleep apnea (adult) (pediatric); Z99.89 Dependence on other enabling machines and devices | CPT/HCPCS: 99212 ==

== ENCOUNTER 2025-03-14 10:42 | Outpatient (AMB) | payer OTHER, SELFPAY ==
--- OUTSIDE RECORDS SUMMARY | 2025-03-13 15:30 | XMS_ITS | Encounter Summary ---
Author Organization [facility] Address [address] [place] [address] Care Team Providers Care Morning Caregiver Name Role Phone Chuy Milian Primary Care Provider [phone] Reason for Visit * Reason Comments Follow-up 3 month htn f/u Encounter Details Date Type Department Care Team (Late st Contact Info) Description 03/13/2025 3:30 PM EST Office Visit Adult Medicine [facility] [address] [place] [phone] Kamala Puentes PA [address] [place] [phone] Primary hypertension (Primary Dx); Hyperlipidemia with target LDL less than 100; DM type 2, controlled, with complication (CMS/HCC V24, CMS/HCC V28); Diabetic polyneuropathy associated with type 2 diabetes mellitus (CMS/HCC V24, CMS/HCC V28); Parkinson's disease, unspecified whether dyskinesia present, unspecified whether manifestations fluctuate (CMS/HCC V24, CMS/HCC V28); Gastroesophageal reflux disease with esophagitis without hemorrhage; IPMN (intraductal papillary mucinous neoplasm); Primary insomnia Social History Tobacco Use Types Packs/Day Years [...] Record ed Within the last 3 months, ho w many times did you visit the [...] care for your loved ones. For example, child's nurse or elderly care for an older adult? [...] Date Recorded What is your living situation? Unrecognized valu e 07/04/2024 Interpersonal Safety Answer Date Record ed Physical Abuse Unrecognized value 01/30/2025 Verbal Abuse Unrecognized value 01/30/2025 Sex and Gender Information Value Date Recorded Sex Assigned at Male 08/04/2024 9:54 AM EDT Legal Sex Male 2:33 PM EST Gender Identity Male 08/04/2024 9:54 AM EDT Sexual Orientation Straight 08/04/2024 9: 54 AM EDT documented as of this encounter Last Filed Vital Signs Vital Sign Reading Time Taken Comments Blood Pressure 130/58 03/13/2025 3:48 PM EST Pulse 68 03/13/2025 3:28 PM EST Temperature 36.2 C (97.2 F) 03/13/2025 3:28 PM EST Respiratory Rate 14 03/13/2025 3:28 PM EST Oxygen Saturation 95% 03/13/2025 3:28 PM EST Inhaled Oxygen Concentration - - Weight 92.1 kg (203 lb) 03/13/2025 3:28 PM EST Height 188 cm (6' 2 ) 03/13/2025 3:28 PM EST Body Mass Index 26.06 03/13/2025 3:28 PM EST documented in this encounter Ordered Prescriptions Prescription Sig Dispense Quantity Refills Last Filled Start Date End Date traZODone (DESYREL) 50 mg tablet Take 1 tablet (50 mg total) by mouth at bedtime as needed for sleep. 30 tablet 5 03/13/2025 documented in this encounter Progress Notes * GLEN Rivero - 03/13/2025 3:30 PM EST CHIEF COMPLAINT: Follow-up (3 month htn f/u) IDENTIFIER: Cameron Kaur is a 69 y.o. old male. HPI: Patient is a 69-year-old male who presents to the office today for a medication review. 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 He has hypertension, hyperlipidemia, diabetes, GERD, Parkinson's. Fasting blood sugars at home have been around 120s. Foot exam UTD, eye exam due. He saw gastroenterology recently. He had an endoscopy which revealed esophagitis. He remains on omeprazole. They are monitoring the IPMN. Weight has been stable. Today he complains of insomnia. Hehas difficulty staying asleep. ROS: GENERAL: No malaise, significant weight loss or fever HEENT: No changes in vision RESPIRATORY: No cough, wheezing or shortness of breath CARDIOVASCULAR: No chest pain, leg swelling or palpitations GI: No abdominal discomfort, blood in stools or black stools : No dysuria, frequency or incontinence NEURO: See HPI PSYCH: See HPI PAST MEDICAL HISTORY: Patient Active Problem List Diagnosis Date Noted Diabetic polyneuropathy associated with type 2 diabetes mellitus ([facility] V24, [facility] V28) 09/19/2020 DM type 2, controlled, with complication ([facility] V24, [facility] V28) 02/12/2015 Medial epicondylitis of left elbow 11/19/2012 Nephrolithiasis 08/16/2012 Hematuria 08/16/2012 HTN (hypertension) 05/14/2012 Hyperlipidemia with target LDL less than 100 05/14/2012 GERD (gastroesophageal reflux disease) 05/14/2012 Insomnia 05/14/2012 DJD (degenerative joint disease) 05/14/2012 Surgical History[1] SOCIAL HISTORY: Social History Tobacco Use Smoking status: Former Types: Cigarettes Passive exposure: Never Smokeless tobacco: Never Substance Use Topics Alcohol use: Not Currently FAMILY HISTORY: Family History[2] MEDICATIONS DISCONTINUED/REORDERED: Medications Discontinued During This Encounter Medication Reason bisacodyL (DULCOLAX) 5 mg EC tablet Therapy completed ibuprofen (ADVIL,MOTRIN) 600 mg tablet Therapy completed polyethylene glycol (Golytely) 236-22.74-6.74 -5.86 gram solution Therapy completed ACTIVE MEDICATIONS: Medications Taking[3] ALLERGIES: Allergies[4] PHYSICAL EXAM: Blood pressure 130/58, pulse 68, temperature 36.2 ??C (97.2 ??F), temperature source Temporal, resp. rate 14, height 1.88 m (74 ), weight 92.1 kg (203 lb), SpO2 95%. Body mass index is 26.06 kg/m??. BMI is greater than 25.0 (above the normal range) - see Plan APPEARANCE: Alert and in no acute distress HEART: RRR with normal S1 and S2, no murmurs, no gallops LUNG: Clear to auscultation EXTREMITIES: No edema NEURO: Awake, alert and oriented x 3 LABS: Lab Results Component Value Date NA 137 11/08/2024 K 4.4 11/08/2024 CL 102 11/08/2024 CO2 26 11/08/2024 GLUCOSE 156 (H) 11/08/2024 BUN 35 (H) 11/08/2024 CREATININE 1.37 (H) 11/08/2024 CALCIUM 9.8 11/08/2024 PROT 7.3 11/08/2024 ALBUMIN 4.4 11/08/2024 BILITOT 0.6 11/08/2024 AST 20 11/08/2024 ALT 56 11/08/2024 ALKPHOS 183 (H) 11/08/2024 EGFR 55 (L) 11/08/2024 Lab Results Component Value Date HGBA1C 7.7 (H) 11/08/2024 HGBA1C 7.1 (H) 07/06/2024 HGBA1C 6.5 11/26/2022 Lab Results Component Value Date MICROALBUR 35.3 (H) 11/08/2024 LDLCALC 46 11/08/2024 CREATININE 1.37 (H) 11/08/2024 MICROALBCREA 12 11/08/2024 IMAGING: None IMPRESSION/PLAN: 1. Primary hypertension 2. Hyperlipidemia with target LDL less than 100 3. DM type 2, controlled, with complication ([facility] V24, [facility] V28) Comprehensive metabolic panel Hemoglobin A1c Lipid panel with reflex to direct LDL Microalbumin creatinine urine ratio 4. Diabetic polyneuropathy associated with type 2 diabetes mellitus ([facility] V24, [facility] V28) 5. Parkinson's disease, unspecified whether dyskinesia present, unspecified whether manifestations fluctuate ([facility] V24, [facility] V28) 6. Gastroesophageal reflux disease with esophagitis without hemorrhage 7. IPMN (intraductal papillary mucinous neoplasm) 8. Primary insomnia Medication and lab orders: Orders Placed This Encounter Procedures Comprehensive metabolic panel Hemoglobin A1c Lipid panel with reflex to direct LDL Microalbumin creatinine urine ratio Other orders: None 1. Blood pressure is controlled today 130/58. Continue on lisinopril and toprol XL. 2. Hyperlipidemia. Last LDL 46, triglycerides 161. Continue on Lipitor 80 mg daily. 3/4. Type 2 diabetes with diabetic polyneuropathy, microalbuminuria. He is not currently on any medications for neuropathy. Diabetic foot exam UTD, eye exam scheduled next month. Fasting sugars have been controlled at home ~ 113 this am. He denies hypoglycemic episodes. Last hemoglobin A1c was 7.7%. Continue glipizide and metformin. 5. Parkinson's disease has been worsening. He remains on Sinemet and amantadine. Continue care withneurology. 6. GERD with esophagitis. Recent endoscopy showed LA grade A esophagitis. 7. Pancreatic cyst. MRI ordered by gastro for follow up 06/2025. 8. Insomnia. He has difficulty staying asleep. Trazodone 50 mg prescribed. Discussed side effects. I have applied the code G2211 to this patient???s visit as the primary care provider dealing with (see above issues) leading to the extensive work up, and management associated with the medical care of this patient. This patient???s serious conditions and complex medical conditions also required several consultants needing management and coordination through my office. I have reviewed all information as it pertains to the management of this patient for final approval. Advised the patient to call me if any problems. Patient understands the plan. Patient is in agreement with the plan. Today's documentation was made using voice recognition software.This note may contain grammatical errors secondary to this software. Kamala Puentes PA-C [1] Past Surgical History: Procedure Laterality Date CHOLECYSTECTOMY ELBOW SURGERY Left HERNIA REPAIR Right inguinal KNEE ARTHROSCOPY Left [2] No family history on file. [3] Outpatient Medications Marked as Taking for the 03/13/25 encounter (Office Visit) with GLEN Rivero Medication Sig Dispense Refill acetaminophen (TYLENOL) 500 mg tablet Take 2 tablets (1,000 mg total) by mouth every 6 (six) hours if needed for mild pain. 60 tablet 0 amantadine (SYMMETREL) 100 mg capsule Take 1 capsule (100 mg total) by mouth 2 (two) times a day. aspirin 81 mg EC tablet Take 1 tablet (81 mg total) by mouth 1 (one) time each day. atorvastatin (LIPITOR) 80 mg tablet Take 1 tablet (80 mg total) by mouth 1 (one) time each day. 90 tablet 3 carbidopa-levodopa (SINEMET) 25-100 mg per tablet Take 1 tablet by mouth 2 (two) times a day. glipiZIDE (GLUCOTROL) 5 mg tablet Take 2 tablets (10 mg total) by mouth 2 (two) times a day before meals. lancets 33 gauge misc 1 Lancet by Not Applicable route. lisinopriL (PRINIVIL,ZESTRIL) 10 mg tablet Take 1 tablet (10 mg total) by mouth 1 (one) time each day. 30 each 5 metFORMIN (GLUCOPHAGE) 1,000 mg tablet TAKE 1 TABLET BY MOUTH TWICE DAILY WITH MEALS 180 tablet 1 metoprolol succinate (TOPROL-XL) 25 mg 24 hr tablet Take 1 tablet (25 mg total) by mouth 1 (one) time each day. omeprazole (PriLOSEC) [address] capsule Take 1 capsule (20 mg total) by mouth 1 (one) time each day.90 capsule 1 OneTouch Ultra Test test strip Apply 1 each topically. OneTouch Ultra2 Meter [facility] USE TO TEST BLOOD SUGAR TWICE DAILY 1 each 0 tamsulosin (FLOMAX) 0.4 mg 24 hr capsule TAKE 1 CAPSULE BY MOUTH EVERY DAY 30 MINUTES AFTER THE SAME MEAL 90 capsule 1 [4] No Known Allergies documented in this encounter Plan of Treatment Upcoming Encounters Date Type Department Care Team (Late st Contact Info) Description 04/25/2025 11:00 AM EST Office Visit General Surgery [facility] [address] [facility] [address] [place] [phone] Lewis Mei DO [address] [place] [phone] 07/12/2025 11:00 AM EDT Office Visit Adult Medicine [address] [phone] Chuy Milian, PA [address] [place] [address] 08/31/2025 11:30 AM EDT Office Visit Gastroenterology - [address] [facility] [address] [facility] [address] [place] [phone] Venita Davenport PA [address] [facility] [address] [place] [address] Scheduled Orders Name Type Priority Associated Diagnoses Orde r Schedule Comprehensive metabolic panel Lab Routine DM type 2, controlled, with complication ([facility] V24, [facility] V28) 1 Occurrences starting 03/13/2025 until 03/13/2026 Hemoglobin A1c Lab Routine DM type 2, controlled, with complication ([facility] V24, [facility] V28) 1 Occurrences starting 03/13/2025 until 03/13/2026 Lipid panel with reflex to direct LDL Lab Routine DM type 2, controlled, with complication ([facility] V24, [facility] V28) 1 Occurrences starting 03/13/2025 until 03/13/2026 Microalbumin creatinine urine ratio Lab Routine DM type 2, controlled, with complication ([facility] V24, [facility] V28) 1 Occurrences starting 03/13/2025 until 03/13/2026 documented as of this encounter Goals Goal Patient Goal Type Associated Problems Recent Progress Patient-Stated? Author Autogenera arlette Goal Care Plan Autogenerated Problem No Alice Lemons documented as of this encounter Visit Diagnoses Diagnosis Primary hypertension- Primary Unspecified essential hypertension Hyperlipidemia with target LDL less than 100 Other and unspecified hyperlipidemia DM type 2, controlled, with complication ([facility] V24, [facility] V28) Diabetic polyneuropathy associated with type 2 diabetes mellitus ([facility] V24, [facility] V28) Parkinson's disease, unspecified whether dyskinesia present, unspecified whether manifestations fluctuate ([facility] V24, [facility] V28) Gastroesophageal reflux disease with esophagitis without hemorrhage IPMN (intraductal papillary mucinous neoplasm) Neoplasm of unspecified nature of digestive system Primary insomnia Persistent disorder of initiating or maintaining sleep documented in this encounter Discontinued Medications Medication Sig Discontinue Reason Start Date End Da te bisacodyL (DULCOLAX) 5 mg EC tablet Take 2 tablets by mouth right before beginning bowel prep. See instructions provided by the office Therapy completed 01/16/2025 03/13/2025 ibuprofen (ADVIL,MOTRIN) 600 mg tablet Take 1 tablet (600 mg total) by mouth 3 (three) times a day. Therapy completed 08/12/2024 03/13/2025 polyethylene glycol (Golytely) 236-22.74-6.74 -5.86 gram solution Take 4L by mouth once for one dose. May substitue any PEG. Starting at 2PM the day before your procedure drink 1 8oz glasses at your own pace until you complete half of the gallon. Finish 2nd half of the gallon at 8PM. Therapy completed 01/16/2025 03/13/2025 documented as of this encounter Additional Health Concerns Active Problems Noted Date Diagnosed Date Autogenerated Problem 01/29/2025 Assessment Noted Time PHQ-9 Depression Total Score: 0 07/05/19 8:30 AM EST A fall risk assessment has been complete d for the patient 07/04/2024 8:30 AM EST documented as of this encounter Care Teams Morning Caregiver Relationship Specialty Start Date End Date Chuy Milian PA [address] [place] [address] PCP - General Internal Medicine 05/09/24 documented as of this encounter
[2025-03-14 10:49] VITALS: BP 132/70; PULSE 65; O2SAT 99; BMI 26.1
--- NOTE | 2025-03-14 10:49 | MHC.OFFVIS ---
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 Required: No Accompanied by: Self / Same As Patient Allergies No Known Allergies Allergy (Verified 03/14/25 10:49) Medication List - Last Reconciled 03/14/25 by Katerina Johnston MD amantadine HCl 100 mg PO BID aspirin (Adult Low Dose Aspirin) 81 mg PO DAILY atorvastatin 80 mg PO BEDTIME blood-glucose meter ([employer] Ultra2 Meter) As directed carbidopa-levodopa 25-100 mg 1 tab PO TID glipizide 15 mg (3 x 5 mg) PO DAILY lisinopril 20 mg PO DAILY metformin 1,000 mg PO BID metoprolol succinate ER 25 mg PO DAILY omeprazole 20 mg PO DAILY tamsulosin 0.4 mg PO DAILY trazodone 50 mg PO DAILY HPI Comments Details: 69y/o male comes for follow up of parkinsons disease and Obstructive sleep apnea A certified tele automotive parts interpreter helped during this visit [phone] Alejandro Michel His HST was c/w mild sleep apnea with increased severity in supine sleep, He tried CPAP - multiple masks and could not tolerate. His tremors are worse. The tremors are mostly at rest. No change in speech.His handwriting is worse. No drooling.He can still use utensils but slower. No issues with personal hygiene. Gait- normal Memory- normal SLeep-has trouble staying asleep, has daytime fatigue, snores. bowel movements - has on and off diarrhea.No urinary issues No h/o head injury No exposure to chemical insecticides or pesticides. [facility] Medical History Obstructive sleep apnea hypopnea, moderate Hypersomnia Snoring Sleep disorder Parkinson's disease without dyskinesia, without mention of fluctuations GERD (gastroesophageal reflux disease) DJD (degenerative joint disease) Insomnia HTN (hypertension) Hyperlipidemia LDL goal <100 Nephrolithiasis Hematuria Medial epicondylitis, left elbow Diabetes type 2 Diabetic polyneuropathy associated with type 2 diabetes mellitus Surgical History H/O lithotripsy H/O elbow surgery H/O colonoscopy Hx of cholecystectomy Family History Mother Diabetes Sister Diabetes Sister Diabetes Social History Alcohol intake: never Patient Tobacco Use Status: Never used Tobacco Physical Exam Vital Signs: Last Vital Signs Pulse 65 03/14/25 10:49 BP 132/70 03/14/25 10:49 Pulse Ox 99 03/14/25 10:49 Oxygen Delivery Method Room Air 03/14/25 10:49 BMI result Body Mass Index 26.1 Const General: cooperative, healthy appearing, comfortable and no acute distress Nutritional Appearance: average body habitus Orientation/consciousness: patient oriented x3 Eyes Pupils: Equal, round and reactive pupils present Neuro Other: Right UE high amplitude rest tremors COuld not shrug his right shoulder Cog wheel rigidity 2 + Right UE Fine finger movements decreased R>L Hand movements decreased R>L Foot taps decreased R>L Decreased blink and facial movement on the right Gait. mild stoop, decreased arm swing on the right with rest tremors. General: patient oriented x3, moves all extremities and no focal motor deficits Cranial nerves: Yes Facial sensation intact/muscles of mastication intact, Yes Equal, round and reactive pupils present, Yes Bilaterally intact EOM present, Yes Nystagmus not present, Yes Normal facial strength present, Yes Midline tongue present and Yes Symmetric palate elevation present Cognition (Neuro): normal cognition Motor exam (neuro): 5/5 motor strength present throughout Coordination: [id number] test normal and [id number] test normal Assessment & Plan Assessment & Plan (1) Parkinson's disease without dyskinesia, without mention of fluctuations: Comment: Tremors predominant- right side Code(s): G20.A1 - Parkinson's disease without dyskinesia, without mention of fluctuations Category: Medical (2) Obstructive sleep apnea hypopnea, moderate: Comment: Unable to tolerate CPAP, not a candidate for oral device . Code(s): G47.33 - Obstructive sleep apnea (adult) (pediatric) Category: Medical Plan Continue exercise Increase Carbidopa/levodopa to 2 tabs 25/100 tid trihexyphenidyl 2mg bid will consider INSPIRE for sleep apnea. Medications: Changed From carbidopa-levodopa 25-100 mg 1 tab PO TID 90 tabs 5RF To carbidopa-levodopa 25-100 mg 2 tabs PO TID 180 tabs 5RF Coding Level of Care Code Est Pt Level 4 (27398) Complex EM visit Add On G2211 Diagnoses Parkinson's disease without dyskinesia, without mention of fluctuations G20.A1 Obstructive sleep apnea hypopnea, moderate G47.33
--- OUTSIDE RECORDS SUMMARY | 2025-03-14 12:23 | XMS_ITS | Clinical Summary ---
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 3 Active OneTouch Ultra Test test strip Apply 1 each topically. 4 Active metoprolol succinate (TOPROL-XL) 25 mg 24 hr tablet Take 1 tablet (25 mg total) by mouth 1 (one) time each day. 3 Active lancets 33 gauge misc 1 Lancet by Not Applicable route. 4 Active OneTouch Ultra2 Meter misc USE TO TEST BLOOD SUGAR TWICE DAILY 1 each 5 Active carbidopa-levo dopa (SINEMET) 25-100 mg per tablet Take 1 tablet by mouth 2 (two) times a day. 5 Active acetaminophen (TYLENOL) 500 mg tablet Take 2 tablets (1,000 mg total) by mouth every 6 (six) hours if needed for mild pain. 60 tablet 5 Active oxyCODONE (ROXICODONE) 5 mg immediate release tabletIndicati ons:Right inguinal hernia Take 1 tablet (5 mg total) by mouth every 6 (six) hours if needed for severe pain. Max Daily Amount: 20 mg 16 tablet 5 Active cetirizine (ZyrTEC) 10 mg tablet TAKE 1 TABLET BY MOUTH DAILY 30 tablet 5 Active amantadine (SYMMETREL) 100 mg capsule Take 1 capsule (100 mg total) by mouth 2 (two) times a day. 5 Active lisinopriL (PRINIVIL,ZEST RIL) 10 mg tablet Take 1 tablet (10 mg total) by mouth 1 (one) time each day. 30 each 5 5 Active omeprazole (PriLOSEC) [address] capsule Take 1 capsule (20 mg total) by mouth 1 (one) time each day. 90 capsule 1 5 Active glipiZIDE (GLUCOTROL) 5 mg tablet Take 2 tablets (10 mg total) by mouth 2 (two) times a day before meals. Active atorvastatin (LIPITOR) 80 mg tablet Take 1 tablet (80 mg total) by mouth 1 (one) time each day. 90 tablet 3 5 Active tamsulosin (FLOMAX) 0.4 mg 24 hr capsule TAKE 1 CAPSULE BY MOUTH EVERY DAY 30 MINUTES AFTER THE SAME MEAL 90 capsule 1 5 Active metFORMIN (GLUCOPHAGE) 1,000 mg tablet TAKE 1 TABLET BY MOUTH TWICE DAILY WITH MEALS 180 tablet 1 5 Active traZODone (DESYREL) 50 mg tablet Take 1 tablet (50 mg total) by mouth at bedtime as needed for sleep. 30 tablet 5 5 Active ibuprofen (ADVIL,MOTRIN) 600 mg tablet Take 1 tablet (600 mg total) by mouth 3 (three) times a day. 60 each 5 025 Discontin ued(Thera py completed ) polyethylene glycol (Golytely) 236-22.74-6.74 -5.86 gram solution Take 4L by mouth once for one dose. May substitue any PEG. Starting at 2PM the day before your procedure drink 1 8oz glasses at your own pace until you complete half of the gallon. Finish 2nd half of the gallon at 8PM. 4000 mL 5 025 Discontin ued(Thera py completed ) bisacodyL (DULCOLAX) 5 mg EC tablet Take 2 tablets by mouth right before beginning bowel prep. See instructions provided by the office 2 tablet 09/ 025 Discontin ued(Thera py completed ) Active Problems Problem Noted Date Diagnosed Date Diabetic polyneuropathy asso ciated with type 2 diabetes mellitus ([facility] V24, [facility] V28) 09/19/2020 DM type 2, controlled, with complication ([facility] V24, [facility] V28) 02/12/2015 Medial epicondylitis of left elbow 11/19/2012 Nephrolithiasis 08/16/2012 Hematuria 08/16/2012 HTN (hypertension) 05/14/2012 Hyperlipidemia with target LDL less than 100 03/2013 Overview (06/29/2023): IMO update GERD (gastroesophageal reflux disease) 3 Insomnia 05/14/2012 Overview (06/29/2023): Takes pierre DJD (degenerative joint disease) 05/14/2012 Resolved Problems Problem Noted Date Diagnosed Date Resolved Date Right inguinal hernia 06/14/20242024 Parkinsonism ([facility] V24, [facility] V28) 11/02/2023 02/29/2024 Encounters Date Type Department Care Team Description 03/13/2025 3:30 PM EST Office Visit Adult Medicine [address] [phone] Kamala Puentes PA Primary hypertension (Primary Dx); Hyperlipidemia with target LDL less than 100; DM type 2, controlled, with complication ([facility] V24, [facility] V28); Diabetic polyneuropathy associated with type 2 diabetes mellitus ([facility] V24, [facility] V28); Parkinson's disease, unspecified whether dyskinesia present, unspecified whether manifestations fluctuate ([facility] V24, [facility] V28); Gastroesophageal reflux disease with esophagitis without hemorrhage; IPMN (intraductal papillary mucinous neoplasm); Primary insomnia 02/13/2025 11:10 AM EDT Office Visit Gastroenterology [facility] [address] [facility] [address] [facility] [address] [place] [phone] Venita Davenport PA Weight loss (Primary Dx); Gastroesophageal reflux disease with esophagitis without hemorrhage; Polyp of colon, unspecified part of colon, unspecified type 01/31/2025 Results Follow-Up Gastroenterology - [place] [facility] [address] [facility] [address] [place] [phone] Jaquelin Purcell DO 01/30/2025 9:50 AM EDT Anesthesia Event [facility] Endoscopy [address] [place] [address] Ana Duff MD Swanson, Mona, CRNA 01/30/2025 7:59 AM EDT - 01/30/2025 11:59 PM EDT Hospital Encounter [facility] End[facility] [address] [place] [address] Jaquelin Purcell DO Swanson, Mona, CRNA Freeman, Katharine O, MD Weight loss; Nausea; Gastroesophageal reflux disease, unspecified whether esophagitis present; Diarrhea Discharge Disposition: Home or Self Care 12/27/2024 Telephone Adult Medicine East - [address] [phone] Kamala Puentes PA 12/21/2024 8:53 AM EDT - 12/21/2024 11:59 PM EDT Hospital Encounter Radiology Department - [address] [phone] IPMN (intraductal papillary mucinous neoplasm) Discharge Disposition: Home or Self Care from Last 3 Months Immunizations Immunization Administration Dates Next Due Influenza trivalent, 0.5mL ( Fluad) 65yo and older 02/19/2024 Influenza trivalent, 0.5mL ( Fluzone High-dose) 65yo [...] CHOLECYSTECTOMY ELBOW SURGERY Left KNEE ARTHROSCOPY Left HERNIA REPAIR Right inguinal Medical History Medical History Date Comments Parkinsonism ([facility] V24, [facility] V28) 11/02/19 24 Hyperlipidemia Hypertension Diabetes mellitus ([facility] V24, [facility] V28) GERD (gastroesophageal reflux disease) DJD (degenerative [...] care for your loved ones. For example, healthcare account manager or elderly care for an older adult? [...] Mass Index 26.06 03/13/2025 3:28 PM EST Plan of Treatment Upcoming Encounters Date Type Department Care Team (Late st Contact Info) Description 04/25/2025 11:00 AM EST Office Visit General Surgery - [place] [address] [facility] [address] [place] [phone] Lewis Mei, [address] [place] [address] 07/12/2025 11:00 AM EDT Office Visit Adult Medicine [address] [phone] Chuy Milian, PA [address] [place] [phone] 08/31/2025 11:30 AM EDT Office Visit Gastroenterology - [address] [facility] [address] [facility] [address] [place] [phone] Venita Davenport PA [address] [facility] [address] [place] [address] Health Maintenance Due Date Last Done Comments RSV Immunization Adult Patients (1 - Risk 50-74 years 1-dose series) 2004 Medicare Annual Wellness Visit 04/12/2022 COVID-19 Vaccine ( season) 2025 04/16/2021, 09/06/2020, 08/09/2020 Diabetes: Annual Retina Eye Exam 01/21/2025 01/22/2024, 01/22/2024, 11/17/2022 Diabetes: Blood Sugar Control Test (HGBA1C) 05/11/2025 11/08/2024, 07/06/2024, 02/19/2024, Additional history exists Diabetes: Annual Foot Exam 07/04/2025 07/04/2024, Social Influencers of Health Screening 07/04/2025 07/04/2024 Diabetes: Annual Urine Albumin-Creatinine Ratio (uACR) 11/08/2025 11/08/2024, 07/06/2024, 11/26/2022 Diabetes: Annual GFR (Glomerular Filtration Rate) 11/08/2025 11/08/2024, 07/06/2024, 02/19/2024, Additional history exists Hypertension/CHF/CAD Annual BMP Blood Test 11/08/2025 11/08/2024, 07/06/2024, 02/19/2024, Additional history exists Falls Risk Assessment 01/30/2026 01/30/2025 , 07/04/2024, 02/03/2022 Cholesterol Screening (Lipid Panel) 11/08/2029 11/08/2024, 07/06/2024, 07/06/2024, Additional history exists Colorectal Cancer Screening: Colonoscopy 01/30/2030 01/30/2025, 12/24/2020, 12/24/2020, Additional history exists DTaP,Tdap,and Td Vaccines (4 - Td or Tdap) 11/25/2032 11/25/2022, 10/15/2012, 08/16/2012 Hepatitis C Screening Completed 07/16/2015 Abdominal Aortic Aneurysm (AAA) Screen Completed 2020 Zoster Vaccines Completed 03/26/2021, 01/03, 04/16/2016 Pneumococcal Vaccine: 50+ Years Completed 09/25/2021, 09/19/2020, 03/03/2012 Depression Screening Completed 07/04/2024 Influenza Vaccine Completed 03/01/2025, , 02/03/2022, Additional history exists HIB Vaccines Aged Out [...] on patient's age to complete this topic Goals Goal Patient Goal Type Associated Problems Recent Progress Patient-Stated? Author Autogenera chong Goal Care Plan Autogenerated Problem No [employer] Implanted Type Area Computer Systems Hardware Analyst Device Identifier Shelf Expiration Date Model / Serial / Lot Mesh Surg 3d Right Xlg 6.7x4.8 - Sn/A - [id number] Implanted:Qty: 1 on 08/12/2024 by Lewis Mei, DO at [facility] Surgical Mesh Sling Implants Right: Abdomen CR BARD - DAVOL DIV 12/29/2028 [id number] / N/A / [id number] Procedures Procedure Name Priority Date/Time Associated Diagnosis Comments COLONOSCOPY Routine 01/30/2025 10:19 AM EDT Weight loss Nausea Gastroesophageal reflux disease, unspecified whether esophagitis present Diarrhea EGD Routine 01/30/2025 10:19 AM EDT Weight loss Nausea Gastroesophageal reflux disease, unspecified whether esophagitis present Diarrhea TISSUE EXAM Routine 01/30/2025 9:59 AM EDT Weight loss Nausea Gastroesophageal reflux disease, unspecified whether esophagitis present Diarrhea MR ABDOMEN WO AND W CONTRAST Routine 12/21/2024 10:36 AM EDT IPMN (intraductal papillary mucinous neoplasm) MICROALBUMIN CREATININE URINE RATIO Routine 11/08/2024 9:22 AM EDT DM type 2, controlled, with complication (CMS/HCC V24, CMS/HCC V28) COMPREHENSIVE METABOLIC PANEL Routine 11/08/2024 9:22 AM EDT DM type 2, controlled, with complication (CMS/HCC V24, CMS/HCC V28) HEMOGLOBIN A1C Routine 11/08/2024 9:22 AM EDT DM type 2, controlled, with complication (CMS/HCC V24, CMS/HCC V28) LIPID PANEL WITH REFLEX TO DIRECT LDL Routine 11/08/2024 9:22 AM EDT DM type 2, controlled, with complication (CMS/HCC V24, CMS/HCC V28) EXTERNAL DIABETIC RETINA EYE EXAM 01/22/2024 ABDOMINAL AORTIC ANEURYSM SCRREN Routine 2020 HEPATITIS C SCREENING Routine 07/16/2015 from Last 3 Months or Most Recently Relevant to Health Maintenance Results * COLONOSCOPY Anesthesia - MAC; [facility] ENDOSCOPY (01/30/2025 10:19 AM EDT) Anatomical Region Laterality Modality Endoscopy 01/30/2025 9:44 AM EDT Impressions 01/30/2025 10:18 AM EDT - Hemorrhoids found on perianal exam. - Two 7 to 8 mm polyps in the rectum and in the cecum, removed with a cold snare. Resected and retrieved. - The examination was otherwise normal on direct and retroflexion views. Recommendation: - Discharge patient to home. - Resume previous diet. - Continue present medications. - Await pathology results. Narrative 01/30/2025 10:18 AM EDT [facility] GI Patient Name: Ambrose Kaur Procedure Date: 01/30/2025 9:44 AM Date of : 1955 Age: 69 Gender: Male Note Status: Finalized Attending MD: Jaquelin Purcell DO, [id number] Procedure Date No Time: 01/30/2025 Procedure: Colonoscopy Indications: Screening colonoscopy Providers: Jaquelin Purclel DO Referring MD: Chuy Milian PA-C Medicines: Monitored Anesthesia Care Complications: No immediate complications. Estimated blood loss: Minimal. Estimated Blood Loss: Estimated blood loss was minimal. Procedure: Pre-Anesthesia Assessment: - - Prior to the procedure, a History and Physical was performed, and patient medications and allergies were reviewed. The patient is competent. The risks and benefits of the procedure and the sedation options and risks were discussed with the patient. All questions were answered and informed consent was obtained. Patient identification and proposed procedure were verified by the physician, the nurse, the anesthesiologist, the umbrella supervisor and the experimental technician in the pre-procedure area in the endoscopy suite. Mental Status Examination: alert and oriented. Airway Examination: normal oropharyngeal airway and neck mobility. Respiratory Examination: clear to auscultation. CV Examination: normal. Prophylactic Antibiotics: The patient does not require prophylactic antibiotics. Prior Anticoagulants: The patient has taken no anticoagulant or antiplatelet agents. ASA Grade Assessment: II - A patient with mild systemic disease. After reviewing the risks and benefits, the patient was deemed in satisfactory condition to undergo the procedure. The anesthesia plan was to use monitored anesthesia care (MAC). Immediately prior to administration of medications, the patient was re-assessed for adequacy to receive sedatives. The heart rate, respiratory rate, oxygen saturations, blood pressure, adequacy of pulmonary ventilation, and response to care were monitored throughout the procedure. The physical status of the patient was re-assessed after the procedure. After I obtained informed consent, the scope was passed under direct vision. Throughout the procedure, the patient's blood pressure, pulse, and oxygen saturations were monitored continuously.The Colonoscope was introduced through the anus and advanced to the terminal ileum. The colonoscopy was performed without difficulty. The patient tolerated the procedure well. The quality of the bowel preparation was good. Findings: Hemorrhoids were found on perianal exam. Two sessile polyps were found in the rectum and cecum. The polyps were 7 to 8 mm in size. These polyps were removed with a cold snare. Resection and retrieval were complete. Verification of patient identification for the specimen was done. Estimated blood loss was minimal. The exam was otherwise without abnormality on direct and retroflexion views. Procedure Code(s): --- Professional --- 10908, Colonoscopy, flexible; with removal of tumor(s), polyp(s), or other lesion(s) by snare technique Diagnosis Code(s): --- Professional --- K64.9, Unspecified hemorrhoids D12.8, Benign neoplasm of rectum D12.0, Benign neoplasm of cecum R19.4, Change in bowel habit CPT copyright 2020 [employer]. All rights reserved. The codes documented in this report are preliminary and upon safety deposit clerk review may be revised to meet current compliance requirements. JAQUELIN Purcell DO 01/30/2025 10:18:19 AM This report has been signed electronically.Jaquelin Purcell DO Number of Addenda: 0 Note Initiated On: 01/30/2025 9:44 AM Scope Withdrawal Time: 0 hours 7 minutes 59 seconds Scope In: 10:04:23 AM Scope Out: 10:16:55 AM Endoscopy Department at [facility] - [address] [place] [phone] Procedure Note Jaquelin Purcell DO - 01/30/2025 [facility] GI Patient Name: Ambrose Kaur Procedure Date: 01/30/2025 9:44 AM Date of : 1955 Age: 69 Gender: Male Note Status: Finalized Attending MD: Jaquelin Purcell DO, [id number] Procedure Date No Time: 01/30/2025 Procedure: Colonoscopy Indications: Screening colonoscopy Providers: Jaquelin Purcell DO Referring MD: Chuy Milian PA-C Medicines: Monitored Anesthesia Care Complications: No immediate complications. Estimated blood loss: Minimal. Estimated Blood Loss: Estimated blood loss was minimal. Procedure: Pre-Anesthesia Assessment: - - Prior to the procedure, a History and Physicalwas performed, and patient medications and allergieswere reviewed. The patient is competent. The risks and benefits of the procedure and the sedation optionsand risks were discussed with the patient. Allquestions were answered and informed consent was obtained. Patient identification and proposed procedure were verified by the physician, the nurse, the anesthesiologist, the umbrella supervisor and thetechnician in the pre-procedure area in the endoscopy suite. Mental Status Examination: alert and oriented.Airway Examination: normal oropharyngeal airway and neck mobility. Respiratory Examination: clear to auscultation. CV Examination: normal. Prophylactic Antibiotics: The patient does not requireprophylactic antibiotics. Prior Anticoagulants: The patient has taken no anticoagulant or antiplatelet agents. ASA Grade Assessment: II - A patient with mild systemic disease. After reviewing the risks and benefits,the patient was deemed in satisfactory condition to undergo the procedure. The anesthesia plan was touse monitored anesthesia care (MAC). Immediately priorto administration of medications, the patient was re-assessed for adequacy to receive sedatives. The heart rate, respiratory rate, oxygen saturations, blood pressure, adequacy of pulmonary ventilation,and response to care were monitored throughout the procedure. The physical status of the patient was re-assessed after the procedure. After I obtained informed consent, the scope was passed under direct vision. Throughout theprocedure, the patient's blood pressure, pulse, and oxygen saturations were monitored continuously.The Colonoscope was introduced through the anus and advanced to the terminal ileum. The colonoscopy was performed without difficulty. The patient tolerated the procedure well. The quality of the bowel preparation was good. Findings: Hemorrhoids were found on perianal exam. Two sessile polyps were found in the rectum andcecum. The polyps were 7 to 8 mm in size. These polypswere removed with a cold snare. Resection and retrieval were complete. Verification of patientidentification for the specimen was done. Estimated blood loss was minimal. The exam was otherwise without abnormality ondirect and retroflexion views. Procedure Code(s): --- Professional --- 53235, Colonoscopy, flexible; with removal of tumor(s), polyp(s), or other lesion(s) by snare technique Diagnosis Code(s): --- Professional --- K64.9, Unspecified hemorrhoids D12.8, Benign neoplasm of rectum D12.0, Benign neoplasm of cecum R19.4, Change in bowel habit CPT copyright 2020 [employer]. All rights reserved. The codes documented in this report are preliminary and upon safety deposit clerk reviewmay be revised to meet current compliance requirements. JAQUELIN Purcell DO 01/30/2025 10:18:19 AM This report has been signed electronically.Jaquelin Purcell DO Number of Addenda: 0 Note Initiated On: 01/30/2025 9:44 AM Scope Withdrawal Time: 0 hours 7 minutes 59 seconds Scope In: 10:04:23 AM Scope Out: 10:16:55 AM Endoscopy Department at [facility] - [address] [place] [id number] IMPRESSION: - Hemorrhoids found on perianal exam. - Two 7 to 8 mm polyps in the rectum and in thececum, removed with a cold snare. Resected andretrieved. - The examination was otherwise normal on directand retroflexion views. Recommendation: - Discharge patient to home. - Resume previous diet. - Continue present medications. - Await pathology results. us Jaquelin Purcell DO GI~PROCEDURE ORDERABLES Final Re sult * EGD Anesthesia - MAC; [facility] ENDOSCOPY (01/30/2025 10:19 AM EDT) Anatomical Region Laterality Modality Endoscopy 01/30/2025 9:45 AM EDT Impressions 01/30/2025 10:02 AM EDT - Normal examined duodenum. - Normal stomach. - LA Grade A reflux esophagitis with no bleeding. Biopsied. WATS-3D brush biopsy specimens obtained. Recommendation: - Discharge patient to home. - Resume previous diet. - Continue present medications. - Await pathology results. Narrative 01/30/2025 10:02 AM EDT [facility] GI Patient Name: Ambrose Kaur Procedure Date: 01/30/2025 9:45 AM Date of : 1955 Age: 69 Gender: Male Note Status: Finalized Attending MD: Jaquelin Purcell DO, [id number] Procedure Date No Time: 01/30/2025 Procedure: Upper GI endoscopy Indications: Heartburn, Esophageal reflux Providers: Jaquelin Purcell DO Referring MD: Chuy Milian PA-C Medicines: Monitored Anesthesia Care Complications: No immediate complications. Estimated blood loss: Minimal. Estimated Blood Loss: Estimated blood loss was minimal. Procedure: Pre-Anesthesia Assessment: - - Prior to the procedure, a History and Physical was performed, and patient medications and allergies were reviewed. The patient is competent. The risks and benefits of the procedure and the sedation options and risks were discussed with the patient. All questions were answered and informed consent was obtained. Patient identification and proposed procedure were verified by the physician, the nurse, the anesthesiologist, the umbrella supervisor and the experimental technician in the pre-procedure area in the endoscopy suite. Mental Status Examination: alert and oriented. Airway Examination: normal oropharyngeal airway and neck mobility. Respiratory Examination: clear to auscultation. CV Examination: normal. Prophylactic Antibiotics: The patient does not require prophylactic antibiotics. Prior Anticoagulants: The patient has taken no anticoagulant or antiplatelet agents. ASA Grade Assessment: II - A patient with mild systemic disease. After reviewing the risks and benefits, the patient was deemed in satisfactory condition to undergo the procedure. The anesthesia plan was to use monitored anesthesia care (MAC). Immediately prior to administration of medications, the patient was re-assessed for adequacy to receive sedatives. The heart rate, respiratory rate, oxygen saturations, blood pressure, adequacy of pulmonary ventilation, and response to care were monitored throughout the procedure. The physical status of the patient was re-assessed after the procedure. - - Prior to the procedure, a History and Physical was performed, and patient medications and allergies were reviewed. The patient is competent. The risks and benefits of the procedure and the sedation options and risks were discussed with the patient. All questions were answered and informed consent was obtained. Patient identification and proposed procedure were verified by the physician, the nurse, the anesthesiologist, the umbrella supervisor and the experimental technician in the pre-procedure area in the endoscopy suite. Mental Status Examination: alert and oriented. Airway Examination: normal oropharyngeal airway and neck mobility. Respiratory Examination: clear to auscultation. CV Examination: normal. Prophylactic Antibiotics: The patient does not require prophylactic antibiotics. Prior Anticoagulants: The patient has taken no anticoagulant or antiplatelet agents. ASA Grade Assessment: II - A patient with mild systemic disease. After reviewing the risks and benefits, the patient was deemed in satisfactory condition to undergo the procedure. The anesthesia plan was to use monitored anesthesia care (MAC). Immediately prior to administration of medications, the patient was re-assessed for adequacy to receive sedatives. The heart rate, respiratory rate, oxygen saturations, blood pressure, adequacy of pulmonary ventilation, and response to care were monitored throughout the procedure. The physical status of the patient was re-assessed after the procedure. After obtaining informed consent, the endoscope was passed under direct vision. Throughout the procedure, the patient's blood pressure, pulse, and oxygen saturations were monitored continuously. The Endoscope was introduced through the mouth, and advanced to the second part of duodenum. The upper GI endoscopy was accomplished without difficulty. The patient tolerated the procedure well. Findings: The examined duodenum was normal. The stomach was normal. LA Grade A (one or more mucosal breaks less than 5 mm, not extending between tops of 2 mucosal folds) esophagitis with no bleeding was found 38 to 39 cm from the incisors. Biopsies were taken with a cold forceps for histology. Wide Area Transepithelial Sampling (WATS-3D [place] Biopsy) was performed for histology and samples sent for Computer-Assisted 3-Dimensional analysis. Estimated blood loss was minimal. Procedure Code(s): --- Professional --- 19341, Esophagogastroduodenoscopy, flexible, transoral; with biopsy, single or multiple Diagnosis Code(s): --- Professional --- K21.00, Gastro-esophageal reflux disease with esophagitis, without bleeding R12, Heartburn CPT copyright 2020 [employer]. All rights reserved. The codes documented in this report are preliminary and upon safety deposit clerk review may be revised to meet current compliance requirements. JAQUELIN Purcell DO 01/30/2025 10:02:41 AM This report has been signed electronically.Jaquelin Purcell DO Number of Addenda: 0 Note Initiated On: 01/30/2025 9:45 AM Scope In: Scope Out: Endoscopy Department at [facility] - [address] [place] [id number] Procedure Note Jaquelin Purcell DO - 01/30/2025 [facility] GI Patient Name: Ambrose Kaur Procedure Date: 01/30/2025 9:45 AM Date of : 1955 Age: 69 Gender: Male Note Status: Finalized Attending MD: Jaquelin Purcell DO, [id number] Procedure Date No Time: 01/30/2025 Procedure: Upper GI endoscopy Indications: Heartburn, Esophageal reflux Providers: Jaquelin Purcell DO Referring MD: Chuy Milian PA-C Medicines: Monitored Anesthesia Care Complications: No immediate complications. Estimated blood loss: Minimal. Estimated Blood Loss: Estimated blood loss was minimal. Procedure: Pre-Anesthesia Assessment: - - Prior to the procedure, a History and Physicalwas performed, and patient medications and allergieswere reviewed. The patient is competent. The risks and benefits of the procedure and the sedation optionsand risks were discussed with the patient. Allquestions were answered and informed consent was obtained. Patient identification and proposed procedure were verified by the physician, the nurse, the anesthesiologist, the umbrella supervisor and thetechnician in the pre-procedure area in the endoscopy suite. Mental Status Examination: alert and oriented.Airway Examination: normal oropharyngeal airway and neck mobility. Respiratory Examination: clear to auscultation. CV Examination: normal. Prophylactic Antibiotics: The patient does not requireprophylactic antibiotics. Prior Anticoagulants: The patient has taken no anticoagulant or antiplatelet agents. ASA Grade Assessment: II - A patient with mild systemic disease. After reviewing the risks and benefits,the patient was deemed in satisfactory condition to undergo the procedure. The anesthesia plan was touse monitored anesthesia care (MAC). Immediately priorto administration of medications, the patient was re-assessed for adequacy to receive sedatives. The heart rate, respiratory rate, oxygen saturations, blood pressure, adequacy of pulmonary ventilation,and response to care were monitored throughout the procedure. The physical status of the patient was re-assessed after the procedure. - - Prior to the procedure, a History and Physicalwas performed, and patient medications and allergieswere reviewed. The patient is competent. The risks and benefits of the procedure and the sedation optionsand risks were discussed with the patient. Allquestions were answered and informed consent was obtained. Patient identification and proposed procedure were verified by the physician, the nurse, the anesthesiologist, the umbrella supervisor and thetechnician in the pre-procedure area in the endoscopy suite. Mental Status Examination: alert and oriented.Airway Examination: normal oropharyngeal airway and neck mobility. Respiratory Examination: clear to auscultation. CV Examination: normal. Prophylactic Antibiotics: The patient does not requireprophylactic antibiotics. Prior Anticoagulants: The patient has taken no anticoagulant or antiplatelet agents. ASA Grade Assessment: II - A patient with mild systemic disease. After reviewing the risks and benefits,the patient was deemed in satisfactory condition to undergo the procedure. The anesthesia plan was touse monitored anesthesia care (MAC). Immediately priorto administration of medications, the patient was re-assessed for adequacy to receive sedatives. The heart rate, respiratory rate, oxygen saturations, blood pressure, adequacy of pulmonary ventilation,and response to care were monitored throughout the procedure. The physical status of the patient was re-assessed after the procedure. After obtaining informed consent, the endoscope was passed under direct vision. Throughout theprocedure, the patient's blood pressure, pulse, and oxygen saturations were monitored continuously. TheEndoscope was introduced through the mouth, and advanced tothe second part of duodenum. The upper GI endoscopy was accomplished without difficulty. The patienttolerated the procedure well. Findings: The examined duodenum was normal. The stomach was normal. LA Grade A (one or more mucosal breaks less than 5mm, not extending between tops of 2 mucosal folds) esophagitis with no bleeding was found 38 to 39 cm from the incisors. Biopsies were taken with a cold forceps for histology. Wide Area Transepithelial Sampling (WATS-3D [place] Biopsy) was performed for histology and samples sent for Computer-Assisted 3-Dimensional analysis. Estimated blood loss was minimal. Procedure Code(s): --- Professional --- 25337, Esophagogastroduodenoscopy, flexible, transoral; with biopsy, single or multiple Diagnosis Code(s): --- Professional --- K21.00, Gastro-esophageal reflux disease with esophagitis, without bleeding R12, Heartburn CPT copyright 2020 [employer]. All rights reserved. The codes documented in this report are preliminary and upon safety deposit clerk reviewmay be revised to meet current compliance requirements. JAQUELIN Purcell DO 01/30/2025 10:02:41 AM This report has been signed electronically.Jaquelin Purcell DO Number of Addenda: 0 Note Initiated On: 01/30/2025 9:45 AM Scope In: Scope Out: Endoscopy Department at [facility] - [address] [place] [phone] IMPRESSION: - Normal examined duodenum. - Normal stomach. - LA Grade A reflux esophagitis with no bleeding. Biopsied. WATS-3D brush biopsy specimensobtained. Recommendation: - Discharge patient to home. - Resume previous diet. - Continue present medications. - Await pathology results. us Jaquelin Purcell DO GI~PROCEDURE ORDERABLES Final Re sult * Tissue exam (01/30/2025 9:59 AM EDT) Final Diagnosis A. Esophagus, ge junction biopsies: - Esophageal squamocolumnar junction mucosa with mild acute inflammation. - Negative for intestinal metaplasia. B. Large Intestine, Cecum, polyp x1: - Sessile serrated lesion (polyp). C. Large Intestine, Rectum, polyp x1: - Hyperplastic polyp. 01/31/2025 11:28 AM EDT [facility] at 1128 EDT Gross Description A. Esophagus, ge junction biopsies: Labeled ge juncti esophagus . Received in formalin are four soft, multani-white to pink-red tissue fragments ranging from 0.15 cm to 0.4 cm in greatest diameter, which are wrapped in paper and submitted in toto in one cassette, four pieces, multiple levels. B. Large Intestine, Cecum, polyp x1: Labeled polyp x 1 colon cecum . Received in formalin is a 0.4 x 0.3 x 0.1 cm aggregate of soft to friable, multani to green tissue fragments and fecal/food debris, which are wrapped in paper and submitted in toto in one cassette, multiple pieces, multiple levels. C. Large Intestine, Rectum, polyp x1: Labeled polyp x 1 Rectum . Received in green-stained formalin, is a 1.5 x 1.0 x 0.2 cm aggregate of fecal/food debris. Definitive tissue is not identified. The specimen is wrapped in paper and submitted in toto in one cassette, multiple pieces, multiple levels (which may fail processing). TS 01/31/2025 11:28 AM EDT [facility] Disclaimer Unless otherwise specified, all tissue is 10% NB formalin fixed and paraffin embedded. 01/31/2025 11:28 AM EDT [facility] Tissue Esophageal structure / Unknown 01/30/2025 9:59 AM EDT 01/30/2025 11:48 AM EDT Tissue specimen (specimen) Cecum structure / Unknown 01/30/2025 10:10 AM EDT 01/30/2025 11:48 AM EDT Tissue specimen (specimen) Rectum structure / Unknown 01/30/2025 10:14 AM EDT 01/30/2025 11:48 AM EDT us Jaquelin Purcell DO LAB PATHOLOGY ORDERABLES Final R esult [facility] [address] [place] [address], * MR Abdomen wo and w Contrast (12/21/2024 10:36 AM EDT) Anatomical Region Laterality Modality Body Magnetic Resonan ce 12/25/2024 6:06 PM EDT Narrative 12/25/2024 6:25 PM EDT MRI of the abdomen without and with intravenous contrast. History follow-up pancreatic cystic lesions. Examination was performed on 1.5 Alejandra magnet without administration of intravenous contrast followed by postcontrast study after administration of 20 cc of DOTAREM. Comparison with previous examination from 06/29/2024. Liver was visualized measuring 17.8 cm in long axis. It revealed minimal decreased signal on out of phase images suggestive of steatosis. Gallbladder is surgically absent. There is no biliary ducts dilatation. Both adrenal glands and spleen are unremarkable. Again noted is lobulated mildly septated cystic lesion in the pancreatic head which on today's study measures 2.2 x 1.7 cm, without significant interval change since previous examination. There are multiple other smaller cystic lesions within the pancreas with the largest, measuring 1.2 x 0.8 cm in the pancreatic body. Pancreatic duct is not dilated. The lesions revealed no abnormal enhancement or solid components. They probably represent IPMN. Incidental findings of approximately 2 cm duodenal diverticulum. Again noted are bilateral renal cysts and peripelvic cysts without significant interval change. There is no evidence of lymphadenopathy or ascites. CONCLUSIONS: No significant interval change in the size and appearance of the cystic lesions within the pancreas most likely representing IPMN. Additional evaluation in 6 months with contrast-enhanced MRI is recommended. Additional stable findings as detailed in the report. -------- FINAL REPORT -------- Dictated By: Brooke Rain Dictated Date: 12/25/2024 18:06 ET Assigned Physician: Brooke Rain Reviewed and Electronically Signed By: Brooke Rain Signed Date: 12/25/2024 18:25 ET Workstation ID: [id number] Transcribed By: Self Edit Transcribed Date: 12/25/2024 18:06 ET Procedure Note Brooke Rain MD - 12/25/2024 MRI of the abdomen without and with intravenous contrast. History follow-up pancreatic cystic lesions. Examination was performed on 1.5 Alejandra magnet without administration ofintravenous contrast followed by postcontrast study after administrationof 20 cc of DOTAREM. Comparison with previous examination from06/29/2024. Liver was visualized measuring 17.8 cm in long axis. It revealed minimaldecreased signal on out of phase images suggestive of steatosis.Gallbladder is surgically absent. There is no biliary ducts dilatation.Both adrenal glands and spleen are unremarkable. Again noted is lobulated mildly septated cystic lesion in the pancreatichead which on today's study measures 2.2 x 1.7 cm, without significantinterval change since previous examination. There are multiple othersmaller cystic lesions within the pancreas with the largest, measuring 1.2x 0.8 cm in the pancreatic body. Pancreatic duct is not dilated. Thelesions revealed no abnormal enhancement or solid components. Theyprobably represent IPMN. Incidental findings of approximately 2 cm duodenal diverticulum. Again noted are bilateral renal cysts and peripelvic cysts withoutsignificant interval change. There is no evidence of lymphadenopathy or ascites. CONCLUSIONS: No significant interval change in the size and appearance ofthe cystic lesions within the pancreas most likely representing IPMN.Additional evaluation in 6 months with contrast-enhanced MRI isrecommended. Additional stable findings as detailed in the report. -------- FINAL REPORT -------- Dictated By: Brooke Rain Dictated Date: 12/25/2024 18:06 ET Assigned Physician: Brooke Rain Reviewed and Electronically Signed By: Brooke Rain Signed Date: 12/25/2024 18:25 ET Workstation ID: [id number] Transcribed By: Self Edit Transcribed Date: 12/25/2024 18:06 ET us Kamala Dhaval CARROLL IMG MRI PROCEDURES Final Result * (ABNORMAL) Lipid panel with reflex to direct LDL (11/08/2024 9:22 AM EDT) Cholesterol 127 0 - 200 mg/dL LAB CHEMISTRY [facility] Triglycerides 161(H) 0 - 150 mg/dL LAB CHEMISTRY METHOD 11/08/2024 2:06 PM EDT [facility] HDL 49 >=40 mg/dL LAB CHEMISTRY METHOD [facility] LDL Calculated 46 0 - 100 mg/dL LAB CHEMISTRY METHOD 11/08/2024 2:06 PM [facility] VLDL Cholesterol Binh 32.2 mg/dL LAB CHEMISTRY METHOD 11/08[facility]2024 [facility] Non HDL Chol. (LDL+VLDL) 78 <145 mg/dL LAB CHEMISTRY METHOD 11/08/2024 2:06 PM EDT [facility] Chol/HDL Ratio 2.6 0.0 - 4.4 LAB CHEMISTRY METHOD 11/08/2024 2:06 PM EDT [facility] Blood Venous blood specimen / Unknown Venipuncture / Unknown 11/08/2024 9:22 AM EDT 11/08/2024 9:22 AM EDT us Kamala Dhaval CARROLL LAB BLOOD ORDERABLES Final Resul t Performing Organization Address [facility]/ZIP Co de Phone Number [facility] [address] [place] [address], [place] [phone] * (ABNORMAL) Microalbumin creatinine urine ratio (11/08/2024 9:22 AM EDT) Creatinine, Urine 296.0 mg/dL LAB CHEMISTRY METHOD 11/08/2024 12:08 PM EDT [facility] Microalb, Ur 35.3(H) 0.0 - 29.0 mg/L LAB CHEMISTRY METHOD 11/08/2024 12:08 PM EDT [facility] Microalb/Crea t Ratio 12 <30 mg/g creat LAB CHEMISTRY METHOD 11/08/2024 12:08 PM EDT [facility] Urine Urine specimen obtained by clean catch procedure / Unknown Non-blood Collection / Unknown 11/08/2024 9:22 AM EDT 11/08/2024 9:22 AM EDT us Kamala CARRLOL LAB URINE ORDERABLES Final Resul t Performing Organization Address [facility]/ZIP Co de Phone Number [facility] [address] [place] [address], [place] [phone] * (ABNORMAL) Hemoglobin A1c (11/08/2024 9:22 AM EDT) Hemoglobin A1C 7.7(H) <6.5 % LAB CHEMISTRY METHOD 11/08/2024 2:15 PM [facility] Mean Bld Glu Estim. 174 mg/dL LAB CHEMISTRY METHOD 11/08/2024 2:15 PM [facility] Blood Venous blood specimen / Unknown Venipuncture / Unknown 11/08/2024 9:22 AM EDT 11/08/2024 9:22 AM EDT us Kamala Dhaval CARROLL LAB BLOOD ORDERABLES Final Resul t [facility] [address] [place] [address], [place] [phone] * (ABNORMAL) Comprehensive metabolic panel (11/08/2024 9:22 AM EDT) Sodium 137 133 - 145 mmol/L LAB CHEMISTRY METHOD 11/08/2024 2:17 PM [facility] Potassium 4.4 3.5 - 5.5 mmol/L LAB CHEMISTRY METHOD 11/08/2024 2:17 PM [facility] Chloride 102 96 - 110 mmol/L LAB CHEMISTRY METHOD 11/08/2024 2:17 PM [facility] CO2 26 21 - 32 mmol/L LAB CHEMISTRY METHOD 11/08/2024 2:17 PM [facility] Anion Gap 9 3 - 11 LAB CHEMISTRY METHOD 11/08/2024 2:17 PM [facility] Glucose 156(H) 70 - 100 mg/dL LAB CHEMISTRY METHOD 11/08/2024 2:17 PM [facility] BUN 35(H) 5 - 25 mg/dL LAB CHEMISTRY METHOD 11/08/2024 2:17 PM [facility] Comment:Results verified by repeat testing Creatinine 1.37(H) 0.70 - 1.30 mg/dL LAB CHEMISTRY METHOD 11/08/2024 2:17 PM [facility] eGFR 55(L) >=60 mL/min/1. 73m2 LAB CHEMISTRY METHOD 11/08/2024 2:17 PM [facility] Comment:Calculation based on the Chronic Kidney Disease Epidemiology Collaboration (CKD-EPI) equation refit without adjustment for race. BUN/Creatinine Ratio 25.5 LAB CHEMISTRY METHOD 11/08/2024 2:17 PM [facility] Calcium 9.8 8.5 - 10.5 mg/dL LAB CHEMISTRY METHOD 11/08/2024 2:17 PM [facility] AST (SGOT) 20 10 - 42 unit/L LAB CHEMISTRY METHOD 11/08/2024 2:17 PM [facility] ALT (SGPT) 56 10 - 60 unit/L LAB CHEMISTRY METHOD 11/08/2024 2:17 PM [facility] Alkaline Phosphatase 183(H) 42 - 121 unit/L LAB CHEMISTRY METHOD 11/08/2024 2:17 PM [facility] Total Protein 7.3 6.0 - 8.0 g/dL LAB CHEMISTRY METHOD 11/08/2024 2:17 PM [facility] Albumin 4.4 3.2 - 5.0 g/dL LAB CHEMISTRY METHOD 11/08/2024 2:17 PM [facility] Total Bilirubin 0.6 0.0 - 1.4 mg/dL LAB CHEMISTRY METHOD 11/08/2024 2:17 PM [facility] Blood Venous blood specimen / Unknown Venipuncture / Unknown 11/08/2024 9:22 AM EDT 11/08/2024 9:22 AM EDT us Kamala Dhaval CARROLL LAB BLOOD ORDERABLES Final Resul t [facility] [address] [place] [address], * External Diabetic Retina Eye Exam Report (01/22/2024) Anatomical Region Laterality Modality Ultrasound Provider [facility] US PROCEDURES Final Result * Abdominal Aortic Aneurysm Screen (2020) Abdominal Aortic Aneurysm (AAA) Screening Negative Anatomical Region Laterality Modality Other Historical Provider HEALTH MAINTENANCE Final Result * Hepatitis C Screening (07/16/2015) Hepatitis C Screening Negative Historical Provider HEALTH MAINTENANCE Final Result from Last 3 Months or Most Recently Relevant to Health Maintenance Additional Health Concerns Active Problems Noted Date Diagnosed Date Autogenerated Problem 01/29/2025 Insurance [employer] MEDICARE Member Subscriber Plan / Payer (Ef fective 2020-Present) Name:AMBROSE KAUR Relation to Subscriber:Self Name:Ambrose Kaur Payer ID:[id number] Group ID:[id number] Type:Not on file Address: [place] [address] [address] [id number] Advance Directives * Full Code - Default [...] currently active code status orders. Care Teams Glass Furnace Operator Relationship Specialty Start Date End Date Chuy Milian PA [address] [place] [id number] PCP - General Internal Medicine 05/09/24
--- OUTSIDE RECORDS SUMMARY | 2025-03-14 12:23 | XMS_ITS | Encounter Summary ---
Author Organization [facility] Address [address] [place] [address] Care Team Providers Care Collar Feller Name Role Phone Chuy Milian Primary Care Provider [phone] Encounter Details Date Type Department Care Team ([facility] Contact Info) Description 01/31/2025 Results Follow-Up Gastroenterology - [place] [address] [facility] 175 [facility] [address] [place] [phone] Mich Purcell, DO [address] [facility] [address] [place] [address] Social History Tobacco Use Types Packs/Day Years Used Date Smoking Tobacco: Former Cigarettes Passive Smoke Exposure: Never Smokeless Tobacco: Never Alcohol Use Standard Drinks/Week Comments Not Currently [...] your loved ones. 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 He should certainly take omeprazole but he needs to doubleit to twice daily given his inflammation. Please let the patient know that the colon polyp removed was benign, but precancerous. Given the type and size of the polyp, and based on current guidelines, I recommend that a surveillance colonoscopy is performed in [address] a reminder on the system for the patient to be contacted to have a surveillance colonoscopy in 5 years. High-fiber diet and avoidance of processed foods recommended. The patient may follow-up with a primary care provider as instructed. Thank you. documented in this encounter Plan of Treatment Upcoming Encounters Date Type Department Care Team (Late st Contact Info) Description 04/25/2025 11:00 AM EST Office Visit General Surgery [facility] 175 [facility] [address] [place] [phone] Lewis Mei DO [address] [place] [phone] 07/12/2025 11:00 AM EDT Office Visit Adult Medicine [address] [phone] Chuy Milian, GLEN [address] [place] [phone] 08/31/2025 11:30 AM EDT Office Visit Gastroenterology - [address] [facility] 299 [facility] [address] [place] [phone] Venita Davenport PA [address] [facility] [address] [place] [address] documented as of this encounter Goals Goal Patient Goal Type Associated Problems Recent Progress Patient-Stated? Author Autogenera arlette Goal Care Plan Autogenerated Problem No Alice Lemons documented as of this encounter Visit Diagnoses Not on filedocumented in this encounter Additional Health Concerns Active Problems Noted Date Diagnosed Date Autogenerated Problem 01/29/2025 Assessment Noted Time PHQ-9 Depression Total Score: 0 07/05/19 25 8:30 AM EST A fall risk assessment has been complete d for the patient 07/04/2024 8:30 AM EST documented as of this encounter Care Teams Collar Feller Relationship Specialty Start Date End Date Chuy Milian PA [address] [place] [address] PCP - General Internal Medicine 05/09/24 documented as of this encounter
== END 2025-03-14 11:13 | disposition home or self-care (01) ==
LOC: HO.HSMS 10:42
PROVIDERS: PCP Physician Assistant Medical; Visit Provider Psychiatry & Neurology Neurology
DX: G20.A1 Parkinson's disease without dyskinesia, without mention of fluctuations (principal); G47.33 Obstructive sleep apnea (adult) (pediatric)
CPT/HCPCS: 99214; G2211

== ENCOUNTER → 2025-03-14 10:42 | Outpatient (BNVA) | payer OTHER, SELFPAY | PROVIDERS: PCP Physician Assistant Medical; Visit Provider Psychiatry & Neurology Neurology | DX: G20.A1 Parkinson's disease without dyskinesia, without mention of fluctuations (principal); G47.33 Obstructive sleep apnea (adult) (pediatric) | CPT/HCPCS: 99212 ==